=== PATIENT | female | born 1950 | race Caucasian/White ===

== ENCOUNTER 2023-05-16 22:47 | Inpatient (IN) | payer MEDICARE ==
[2023-05-16] MEDS: DILTIAZEM 125 MG in SODIUM CHLORIDE 0.9% 100 ML IV SCH (23:08)
[2023-05-16] MEDS: DILTIAZEM DRIP BOLUS FROM BAG 1 MG SOLN IV ONE (23:10)
--- NOTE | 2023-05-16 23:13 | ED ---
General Adult HPI - General Chief complaint: Shortness of Breath Stated complaint: Tachycardia, Difficulty breathing Time Seen by Provider: 05/16/23 22:50 Source: patient, EMS, RN notes reviewed, old records reviewed Mode of arrival: EMS - History of Present Illness Initial comments: 72-year-old female presents for evaluation of increased dyspnea. Patient states that for the past 1 months she has had progressive lower extremity edema. She was noted by paramedics during transport to be in atrial fibrillation with RVR. She has no prior history of arrhythmia, no history of CAD. She states she does not currently seeing a doctor and is not currently taking any medication. She denies fever. She denies abdominal pain. She denies palpitations or chest pain. - Related Data Home Medications Medication Instructions Recorded Confirmed Aspirin 325 mg PO QID PRN 12/07/22 12/07/22 Allergies Allergy/AdvReac Type Severity Reaction Status Date / Time codeine AdvReac Nausea Verified 12/07/22 07:11 Review of Systems ROS Statement: Those systems with pertinent positive or pertinent negative responses have been documented in the HPI. ROS Other: All systems not noted in ROS Statement are negative. Past Medical History Additional Past Medical History / Comment(s): migraine History of Any Multi-Drug Resistant Organisms: None Reported Past Surgical History: No Surgical Hx Reported Past Psychological History: No Psychological Hx Reported Past Alcohol Use History: None Reported Past Drug Use History: None Reported General Exam General appearance: alert, anxious Head exam: Present: atraumatic, normocephalic Eye exam: Present: normal appearance, PERRL ENT exam: Present: normal exam Neck exam: Present: normal inspection. Absent: tenderness, meningismus Respiratory exam: Present: respiratory distress, rales, decreased breath sounds Cardiovascular Exam: Present: tachycardia, irregular rhythm GI/Abdominal exam: Present: soft. Absent: distended, tenderness Extremities exam: Present: pedal edema Neurological exam: Present: alert, oriented X3 Psychiatric exam: Present: anxious Skin exam: Present: warm, dry, intact Course Vital Signs 05/16/23 05/16/23 05/16/23 22:53 23:12 23:58 Temperature 97.6 F Pulse Rate 72 134 H 117 H Respiratory 18 27 H 23 Rate Blood Pressure 178/159 189/112 150/116 O2 Sat by Pulse 99 100 100 Oximetry 05/17/23 01:00 Temperature Pulse Rate 110 H Respiratory 17 Rate Blood Pressure 159/132 O2 Sat by Pulse 96 Oximetry Medical Decision Making - Medical Decision Making Was pt. sent in by a medical professional or institution ([facility] Looney, [facility] SCRUBBER, urgent care, hospital, or residential...) When possible be specific @ -No Did you speak to anyone other than the patient for history (EMS, parent, family, police, friend...)? What history was obtained from this source @ -No Did you review nursing and triage notes (agree or disagree)? Why? @ -I reviewed and agree with nursing and triage notes Were old charts reviewed (outside hosp., previous admission, EMS record, old EKG, old radiological studies, urgent care reports/EKG's, residential records)? Report findings @ -No old charts were reviewed Differential Diagnosis (chest pain, altered mental status, abdominal pain women, abdominal pain men, vaginal bleeding, weakness, fever, dyspnea, syncope, headache, dizziness, GI bleed, back pain, seizure, CVA, palpatations, mental health, musculoskeletal)? @ -Differential Dyspnea: Coronary syndrome, arrhythmia, tamponade, asthma, COPD, pulmonary embolism, pneumonia, pneumothorax, pulmonary effusion, anaphylaxis, diabetic ketoacidosis, flailed chest, pulmonary contusion, diaphragmatic rupture, anemia, neuromuscular, this is not meant to be an all-inclusive list. EKG interpreted by me (3pts min.). @EKG: Atrial fibrillation with RVR rate of 194, QRS duration 71, QTc [address] segment elevation. X-rays interpreted by me (1pt min.). @ -Chest x-ray shows diffuse pulmonary edema and bilateral effusions. CT interpreted by me (1pt min.). @ -None done U/S interpreted by me (1pt. min.). @ -None done What testing was considered but not performed or refused? (CT, X-rays, U/S, labs)? Why? @ -None What meds were considered but not given or refused? Why? @ -None Did you discuss the management of the patient with other professionals (professionals i.e. SHAWNA Looney, LEATHER SCRUBBER, lab, RT, psych nurse, social work faculty member, client services manager, teacher, landing signal officer, director of casework)? Give summary @Dr. Llamas Was smoking cessation discussed for >3mins.? @ -No Was critical care preformed (if so, how long)? @ -[Yes, 35 minutes Were there social determinants of health that impacted care today? How? (Ho melessness, low income, unemployed, alcoholism, drug addiction, transportation, low edu. Level, literacy, decrease access to med. care, long-term, rehab)? @ -No Was there de-escalation of care discussed even if they declined (Discuss DNR or withdrawal of care, Hospice)? DNR status @ -No What co-morbidities impacted this encounter? (DM, HTN, Smoking, COPD, CAD, Cancer, CVA, ARF, Chemo, Hep., AIDS, mental health diagnosis, sleep apnea, morbid obesity)? @ -None Was patient admitted / discharged? Hospital course, mention meds given and route, prescriptions, significant lab abnormalities, going to OR and other pertinent info. @ -[72-year-old female presenting with chief complaint of dyspnea, bilateral lower extremity edema. Patient found to be in a rapid atrial fibrillation which is new for this patient, rate near 200. She is also in acute CHF which I suspect is from rapid atrial fibrillation with symptoms progressive over the past 1 month. She started on Cardizem, heparin, given Lasix in the emergency department. This is a new diagnosis for this patient. She has a stable hemoglobin, normal white blood cell count, she has an elevated BNP, negative troponin. Normal electrolytes. Patient admitted to internal medicine with cardiology on consult. Echo has been ordered. Undiagnosed new problem with uncertain prognosis? @ -No Drug Therapy requiring intensive monitoring for toxicity (Heparin, Nitro, Insulin, Cardizem)? @ -No Were any procedures done? @ -No Diagnosis/symptom? @ -New onset atrial fibrillation with RVR, new onset heart failure Acute, or Chronic, or Acute on Chronic? @ -[Acute Uncomplicated (without systemic symptoms) or Complicated (systemic symptoms)? @ -Default Side effects of treatment? @ -No Exacerbation, Progression, or Severe Exacerbation? @ -No Poses a threat to life or bodily function? How? (Chest pain, [place], [place], pneumonia, PE, COPD, DKA, ARF, appy, cholecystitis, CVA, Diverticulitis, Homicidal, Suicidal, threat to staff... and all critical care pts) @ -Yes, CHF, arrhythmia - Lab Data Result diagrams: 05/16/23 23:01 05/16/23 23:01 Lab Results 05/16/23 05/16/23 05/16/23 Range/Units 23:01 23:01 23:01 WBC 10.8 H (3.8-10.6) k/uL RBC 4.57 (3.80-5.40) m/uL Hgb 13.0 (11.4-16.0) gm/dL Hct 40.9 (34.0-46.0) % MCV 89.4 (80.0-100.0) fL MCH 28.4 (25.0-35.0) pg MCHC 31.7 (31.0-37.0) g/dL RDW 16.4 H (11.5-15.5) % Plt Count 242 (150-450) k/uL MPV 7.8 Neutrophils % 81 % Lymphocytes % 13 % Monocytes % 4 % Eosinophils % 1 % Basophils % 1 % Neutrophils # 8.7 H (1.3-7.7) k/uL Lymphocytes # 1.4 (1.0-4.8) k/uL Monocytes # 0.5 (0-1.0) k/uL Eosinophils # 0.1 (0-0.7) k/uL Basophils # 0.1 (0-0.2) k/uL Poikilocytosis Slight Anisocytosis Slight PT 11.8 (10.0-12.5) sec INR 1.1 (<1.2) APTT 21.4 L (22.0-30.0) sec Sodium 136 L (137-145) mmol/L Potassium 3.8 (3.5-5.1) mmol/L Chloride 103 (98-107) mmol/L Carbon Dioxide 28 (22-30) mmol/L Anion Gap 5 mmol/L BUN 22 H (7-17) mg/dL Creatinine 0.88 (0.52-1.04) mg/dL Est GFR (CKD-EPI)AfAm 75 (>60 ml/min/1.73 sqM) Est GFR (CKD-EPI)NonAf 65 (>60 ml/min/1.73 sqM) Glucose 131 H (74-99) mg/dL Calcium 9.4 (8.4-10.2) mg/dL Magnesium 1.9 (1.6-2.3) mg/dL Total Bilirubin 2.2 H (0.2-1.3) mg/dL AST 27 (14-36) U/L ALT 22 (4-34) U/L Alkaline Phosphatase 71 (38-126) U/L Troponin I (0.000-0.034) ng/mL NT-Pro-B Natriuret Pep 4070 pg/mL Total Protein 5.7 L (6.3-8.2) g/dL Albumin 3.3 L (3.5-5.0) g/dL TSH 3.610 (0.465-4.680) mIU/L 05/16/23 Range/Units 23:01 WBC (3.8-10.6) k/uL RBC (3.80-5.40) m/uL Hgb (11.4-16.0) gm/dL Hct (34.0-46.0) % MCV (80.0-100.0) fL MCH (25.0-35.0) pg MCHC (31.0-37.0) g/dL RDW (11.5-15.5) % Plt Count (150-450) k/uL MPV Neutrophils % % Lymphocytes % % Monocytes % % Eosinophils % % Basophils % % Neutrophils # (1.3-7.7) k/uL Lymphocytes # (1.0-4.8) k/uL Monocytes # (0-1.0) k/uL Eosinophils # (0-0.7) k/uL Basophils # (0-0.2) k/uL Poikilocytosis Anisocytosis PT (10.0-12.5) sec INR (<1.2) APTT (22.0-30.0) sec Sodium (137-145) mmol/L Potassium (3.5-5.1) mmol/L Chloride (98-107) mmol/L Carbon Dioxide (22-30) mmol/L Anion Gap mmol/L BUN (7-17) mg/dL Creatinine (0.52-1.04) mg/dL Est GFR (CKD-EPI)AfAm (>60 ml/min/1.73 sqM) Est GFR (CKD-EPI)NonAf (>60 ml/min/1.73 sqM) Glucose (74-99) mg/dL Calcium (8.4-10.2) mg/dL Magnesium (1.6-2.3) mg/dL Total Bilirubin (0.2-1.3) mg/dL AST (14-36) U/L ALT (4-34) U/L Alkaline Phosphatase (38-126) U/L Troponin I 0.019 (0.000-0.034) ng/mL NT-Pro-B Natriuret Pep pg/mL Total Protein (6.3-8.2) g/dL Albumin (3.5-5.0) g/dL TSH (0.465-4.680) mIU/L Critical Care Time Critical Care Time: Yes Total Critical Care Time: 35 Disposition Clinical Impression: Congestive heart failure, Atrial fibrillation with RVR Disposition: ADMITTED IP TO THIS HOSP Condition: Stable Is patient prescribed a controlled substance at d/c from ED?: No Time of Disposition: 01:30
[2023-05-16 23:31] LABS: Anisocytosis Slight; Basophils # (A) 0.1 k/uL (0-0.2); Basophils % (A) 1 %; Eosinophils # (A) 0.1 k/uL (0-0.7); Eosinophils % (A) 1 %; HCT 40.9 % (34.0-46.0); Lymphocytes # (A) 1.4 k/uL (1.0-4.8); Lymphocytes % (A) 13 %; MCH 28.4 pg (25.0-35.0); MCHC 31.7 g/dL (31.0-37.0); MCV 89.4 fL (80.0-100.0); Mean Platelet Volume 7.8; Monocytes # (A) 0.5 k/uL (0-1.0); Monocytes % (A) 4 %; Neutrophils # (A) 8.7 k/uL (1.3-7.7); Neutrophils % (A) 81 %; Platelet Count 242 k/uL (150-450); Poikilocytosis Slight; RBC 4.57 m/uL (3.80-5.40); RDW 16.4 % (11.5-15.5); WBC 10.8 k/uL (3.8-10.6)
[2023-05-16 23:51] LABS: INR 1.1 (<1.2); Prothrombin Time 11.8 sec (10.0-12.5)
[2023-05-16 23:54] LABS: ALT 22 U/L (4-34); AST 27 U/L (14-36); African American GFR (CKD) 75 (>60 ml/min/1.73 sqM); Albumin 3.3 g/dL (3.5-5.0); Alkaline Phosphatase 71 U/L (38-126); Anion Gap 5 mmol/L; Blood Urea Nitrogen 22 mg/dL (7-17); Calcium 9.4 mg/dL (8.4-10.2); Carbon Dioxide 28 mmol/L (22-30); Chloride 103 mmol/L (98-107); Glucose 131 mg/dL (74-99); Magnesium 1.9 mg/dL (1.6-2.3); Non-African American GFR(CKD) 65 (>60 ml/min/1.73 sqM); Partial Thromboplastin Time 21.4 sec (22.0-30.0); Potassium 3.8 mmol/L (3.5-5.1); Sodium 136 mmol/L (137-145); Total Bilirubin 2.2 mg/dL (0.2-1.3); Total Protein 5.7 g/dL (6.3-8.2)
[2023-05-16] MEDS: FUROSEMIDE 10 MG/ML 4 ML VIAL IV STA (23:56)
[2023-05-17 00:02] LABS: NT-Pro-B-Type Natriuretic Pept 4070 pg/mL
[2023-05-17] MEDS ORDERED: NALOXONE 0.4 MG/ML 1 ML VIAL IV PRN (00:23)
[2023-05-17] MEDS ORDERED: ACETAMINOPHEN TAB 325 MG TAB PO PRN (00:23)
--- NOTE | 2023-05-17 00:23 | XR ---
EXAM: XR Chest, 1 View CLINICAL HISTORY: ITS.REASON XR Reason: dysrhythmia TECHNIQUE: Frontal view of the chest. COMPARISON: No relevant prior studies available. IMPRESSION: Cardiomegaly. Bilateral pleural effusions and pulmonary edema
[2023-05-17] MEDS: HEPARIN SOD,PORK IN 0.45% NACL 25,000 UNIT in 0.45% NACL 1 250ML.BAG IV SCH (01:09)
[2023-05-17] MEDS: HEPARIN SODIUM 1,000 UN/ML (10ML VL) IV ONE (01:16)
--- NOTE | 2023-05-17 04:15 | P.HPIM ---
History of Present Illness H&P Date: 05/16/23 Patient is a 72-year-old female with no known PMH who presents to the emergency room with complaints of shortness of breath, palpitations, and lower extremity edema. The patient was tearful during the interview and noted that she lost her to Parkinson's 1 month ago and that she has been feeling really down and depressed since then. She denies any suicidal ideation. Does report that over the past few weeks, she has noticed gradually worsening lower extremity edema up into her thighs as well as shortness of breath, orthopnea, and occasional palpitations. Denies experiencing chest discomfort, nausea, vomiting, diaphoresis, or dizziness. Chest x-ray in the emergency room revealed cardiomegaly with bilateral pulmonary effusions and pulmonary edema. EKG revealed A-fib with RVR at 194 bpm as reviewed by me. Laboratory evaluation was remarkable for troponin 0.019, proBNP 4070, and WBC count 10.8. ED documentation reviewed and case discussed with ED provider. Review of systems: Pertinent positives and negatives as discussed in HPI, a complete review of systems was performed and all other systems are negative. Physical examination: Vital signs reviewed General: non toxic, no distress, appears at stated age, normal weight Derm: no unusual rashes/lesions, warm Head: atraumatic, normocephalic, symmetric Eyes: EOMI, no lid lag, anicteric sclera, pupils equal round reactive to light ENT: Nose and ears atraumatic Neck: No cervical lymphadenopathy, trachea midline, supple Mouth: no lip lesion, mucus membranes moist Cardiovascular: Irregularly irregular, no murmur, positive dorsalis pedis pulse bilateral, 2+ bilateral lower extremity pitting edema Lungs: Bilateral rales appreciated, no accessory muscle use Abdominal: soft, nontender to palpation, no guarding Ext: muscle strength 5 out of 5 in all 4 extremities grossly, no gross muscle atrophy, no contractures, Neuro: CN II-XI grossly intact, no gross focal neuro deficits Psych: Alert, oriented, tearful affect Assessment: A-fib with RVR Fluid overload, suspect CHF with newly diagnosed A-fib Leukocytosis, suspect due to acute stressor with no signs of active infection at this time Bereavement of 's recent Imaging: Chest x-ray in the emergency room revealed cardiomegaly with bilateral pulmonary effusions and pulmonary edema. EKG revealed A-fib with RVR at 194 bpm as reviewed by me. Data Review: Laboratory evaluation was remarkable for troponin 0.019, proBNP 4070, and WBC count 10.8. Plan: Continue with Cardizem and heparin infusions Cardiology consulted Cardiac monitoring Obtain echocardiogram Start lasix 40 mg IV every 12 hourly Intake and output Daily weights Monitor electrolytes DVT prophylaxis: Heparin infusion The patient is admitted with an anticipated greater than than 2 midnight stay for evaluation of A-fib with RVR CODE STATUS: Full Code Discussed with: Patient Anticipated discharge place: Home Past Medical History Additional Past Medical History / Comment(s): migraine History of Any Multi-Drug Resistant Organisms: None Reported Past Surgical History: No Surgical Hx Reported Past Psychological History: No Psychological Hx Reported Past Alcohol Use History: None Reported Past Drug Use History: None Reported Medications and Allergies Home Medications Medication Instructions Recorded Confirmed Type Aspirin 325 mg PO QID PRN 12/07/22 12/07/22 History Allergies Allergy/AdvReac Type Severity Reaction Status Date / Time codeine AdvReac Nausea Verified 12/07/22 07:11 Physical Exam Vitals: Vital Signs Temp Pulse Resp BP Pulse Ox 05/17/23 04:00 98 20 174/102 99 05/17/23 03:30 92 18 125/114 99 05/17/23 02:30 101 H 22 187/122 99 05/17/23 01:30 101 H 22 160/112 98 05/17/23 01:00 110 H 17 159/132 96 05/16/23 23:58 117 H 23 150/116 100 05/16/23 23:12 134 H 27 H 189/112 100 05/16/23 22:53 97.6 F 72 18 178/159 99 Intake and Output 05/16/23 05/16/23 05/17/23 14:59 22:59 06:59 Other: Weight 55 kg Results CBC & Chem 7: 05/16/23 23:01 05/16/23 23:01 Labs: Abnormal Lab Results - Last 24 Hours (Table) 05/16/23 05/16/23 05/16/23 Range/Units 23:01 23:01 23:01 WBC 10.8 H (3.8-10.6) k/uL RDW 16.4 H (11.5-15.5) % Neutrophils # 8.7 H (1.3-7.7) k/uL APTT 21.4 L (22.0-30.0) sec Sodium 136 L (137-145) mmol/L BUN 22 H (7-17) mg/dL Glucose 131 H (74-99) mg/dL Total Bilirubin 2.2 H (0.2-1.3) mg/dL Total Protein 5.7 L (6.3-8.2) g/dL Albumin 3.3 L (3.5-5.0) g/dL
[2023-05-17] MEDS: ISOSORBIDE MONONITRATE ER 60 MG TAB.ER.24H PO STA (04:25)
[2023-05-17] MEDS: FUROSEMIDE 10 MG/ML 4 ML VIAL IV SCH (08:40)
[2023-05-17 08:52] LABS: Anisocytosis Slight; HGB 11.5 gm/dL (11.4-16.0); MCH 29.5 pg (25.0-35.0); MCHC 32.8 g/dL (31.0-37.0); MCV 89.8 fL (80.0-100.0); Mean Platelet Volume 7.2; Platelet Count 213 k/uL (150-450); Poikilocytosis Slight; RDW 16.3 % (11.5-15.5); WBC 7.5 k/uL (3.8-10.6)
[2023-05-17 09:05] LABS: ALT 22 U/L (4-34); AST 34 U/L (14-36); African American GFR (CKD) 90 (>60 ml/min/1.73 sqM); Alkaline Phosphatase 48 U/L (38-126); Anion Gap 5 mmol/L; Blood Urea Nitrogen 21 mg/dL (7-17); Calcium 8.6 mg/dL (8.4-10.2); Carbon Dioxide 30 mmol/L (22-30); Chloride 102 mmol/L (98-107); Glucose 92 mg/dL (74-99); Magnesium 1.8 mg/dL (1.6-2.3); Non-African American GFR(CKD) 78 (>60 ml/min/1.73 sqM); Sodium 137 mmol/L (137-145); Total Bilirubin 2.8 mg/dL (0.2-1.3); Total Protein 5.3 g/dL (6.3-8.2)
[2023-05-17] MEDS: METOPROLOL TARTRATE 25 MG TAB PO SCH (09:07)
[2023-05-17] MEDS: lisinopriL 5 MG TAB PO SCH (09:07)
[2023-05-17 09:20] LABS: Potassium 3.5 mmol/L (3.5-5.1)
--- NOTE | 2023-05-17 11:15 | CA ---
Transthoracic Echo Report Name: Sondra Brooke Age: 72 Gender: F : 1950 Exam Date: 05/17/2023 08:09 Exam Location: [facility] Ht (in): 62 Wt (lb): 121 Ordering Physician: Reese Neumann MD Attending/Referring Phys: [id number], Nel Golf Caddy Radha Fong RDCS Procedure CPT: Indications: chf Cardiac Hx: Technical Quality: Good Contrast 1: Total Dose (mL): Contrast 2: Total Dose (mL): MEASUREMENTS (Male / Female) Normal Values 2D ECHO LV Diastolic Diameter PLAX 3.9 cm 4.2 - 5.9 / 3.9 - 5.3 cm LV Systolic Diameter PLAX 3.3 cm IVS Diastolic Thickness 1.3 cm 0.6 - 1.0 / 0.6 - 0.9 cm LVPW Diastolic Thickness 1.3 cm 0.6 - 1.0 / 0.6 - 0.9 cm LV Relative Wall Thickness 0.7 RV Internal Dim ED PLAX 3.5 cm LA Systolic Diameter LX 4.3 cm 3.0 - 4.0 / 2.7 - 3.8 cm LV Diastolic Volume MOD 4C 75.5 cm??? LV Systolic Volume MOD 4C 47.8 cm??? LV Ejection Fraction MOD 4C 36.8 % LV Cardiac Index MOD 4C 1698.3 cm???/min???m??? LV Diastolic Length 4C 8.0 cm LV Systolic Length 4C 7.3 cm LV Diastolic Volume MOD 2C 72.7 cm??? LV Systolic Volume MOD 2C 40.2 cm??? LV Ejection Fraction MOD 2C 44.7 % LV Cardiac Index MOD 2C 1987.5 cm???/min???m??? LV Diastolic Length 2C 7.0 cm LV Systolic Length 2C 6.2 cm LA Volume 61.7 cm??? 18 - 58 / 22 - 52 cm??? LA Volume Index 39.7 cm???/m??? 16 - 28 cm???/m??? M-MODE Aortic Root Diameter MM 2.8 cm AV Cusp Separation MM 2.2 cm DOPPLER AV Peak Velocity 131.0 cm/s AV Peak Gradient 6.9 mmHg MV Area PHT 3.8 cm??? MV Deceleration Time 190.3 ms TR Peak Velocity 322.8 cm/s TR Peak Gradient 41.7 mmHg Right Ventricular Systolic Press 46.7 mmHg FINDINGS Left Ventricle Left ventricular ejection fraction is estimated at 40-45 %. Left ventricular cavity size normal. Moderately increased septal wall thickness. Mildly increased posterior wall thickness. Right Ventricle Mild right ventricular dilatation. Moderate pulmonary hypertension. Right Atrium Normal right atrial size. Left Atrium Mildly increased left atrial diameter. Mildly increased left atrial volume. Mildly increased left atrial area. Mitral Valve Structurally normal mitral valve. Mild to moderate mitral regurgitation. Aortic Valve Trileaflet aortic valve. Thickened aortic valve without stenosis. Tricuspid Valve Structurally normal tricuspid valve. Moderate tricuspid regurgitation. Pulmonic Valve Structurally normal pulmonic valve. Mild pulmonic regurgitation. Pericardium Trace pericardial effusion. Aorta Normal size aortic root and proximal ascending aorta. CONCLUSIONS Mildly impaired LV function with EF between 40-45% [id number] mitral regurgitation with a central jet Aortic sclerosis was no stenosis Mild pulmonary hypertension Trace pericardial effusion Previewed by: Dr. Todd Spencer MD (Electronically Signed) Final Date: 17 May 2023 11:14
--- NOTE | 2023-05-17 12:17 | P.CRDCN ---
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 We have been asked to evaluate the patient for A-fib with RVR. Patient presented to the hospital stating that she could not catch her breath which has been going on for couple weeks. She denies having any cough no wheezing. She does have lower extremity edema. She denies having any chest pain. She does complain of orthopnea and palpitations. No dizziness or syncopal episode. She has a history of tobacco use and quit in March. She drinks tea. No alcohol use. She denies being diagnosed with any lung conditions no history of CVA. Noted the patient's about 1 month ago. EKG atrial fibrillation with RVR, nonspecific ST-T wave changes Chest x-ray: Cardiomegaly. Bilateral pleural effusions and pulmonary edema. Echocardiogram performed 05/17/2023 reveals EF 40 to 45%, mild to moderate mitral regurgitation with central jet, aortic sclerosis without stenosis, mild pulmonary hypertension, trace pericardial effusion. WBC 7.5, hemoglobin 9.5, platelet count 213. INR 1.1. Sodium 137, potassium 3.5, BUN 21 creatinine 0.76. Total bilirubin 2.8 otherwise liver function test are normal. Troponin 0.019. proBNP 4070. Magnesium 1.8. TSH 3.61. Home cardiac medications: None Review Of Systems: At the time of my exam: CONSTITUTIONAL: Denies fever or chills. HEENT: Denies blurred vision, vision changes, or eye pain. Denies hemoptysis CARDIOVASCULAR: Denies chest pain. + orthopnea.+ PND. Denies palpitations. + edema. RESPIRATORY: + shortness of breath. GASTROINTESTINAL: Denies abdominal pain. Denies nausea or vomiting. HEMATOLOGIC: Denies bleeding disorders. GENITOURINARY: Denies any blood in urine. SKIN: Denies pruitis. Denies rash. Physical examination: Gen: This is a frail-appearing 72-year-old female. In no acute respiratory distress. VS: reviewed HEENT: Head is atraumatic, normocephalic. Pupils equal, round. Sclerae is anicteric. NECK: Significant JVD. LUNGS: Decreased breath sounds bilateral bases. No intercostal retractions. HEART: Depressed heart sounds, irregular rate and rhythm. ABDOMEN: Soft No tenderness. EXTREMITIES: 2+ bilateral pedal edema. No calf tenderness. NEUROLOGICAL: Patient is awake, alert and oriented x3. Assessment: New onset paroxysmal atrial fibrillation with RVR, of unknown duration Acute heart failure, systolic Cardiomyopathy possibly stress-induced Uncontrolled hypertension Moderate mitral regurgitation Tobacco use and dependence, quit in March Plan: Resume patient's home cardiac medications Start patient on metoprolol 25 mg 3 times daily Start patient on lisinopril 5 mg twice daily Continue IV Lasix 40 mg every 12 hours Monitor ANN MARIE, daily weights, electrolytes and renal function Continue patient on IV heparin Further recommendations to follow based upon clinical course Thank you kindly for this consultation. Nurse practitioner note has been reviewed, I agree with documented findings and plan of care. Patient was seen and examined. Past Medical History Additional Past Medical History / Comment(s): migraine History of Any Multi-Drug Resistant Organisms: None Reported Past Surgical History: No Surgical Hx Reported Past Psychological History: No Psychological Hx Reported Past Alcohol Use History: None Reported Past Drug Use History: None Reported Medications and Allergies Home Medications Medication Instructions Recorded Confirmed Type Aspirin 325 mg PO QID PRN 12/07/22 05/17/23 History Allergies Allergy/AdvReac Type Severity Reaction Status Date / Time codeine AdvReac Nausea Verified 05/17/23 07:28 Physical Exam Vitals: Vital Signs Temp Pulse Pulse Resp BP BP Pulse Ox 05/17/23 08:24 97.5 F L 100 17 149/102 98 05/17/23 06:20 90 20 151/99 97 05/17/23 05:48 97.6 F 85 16 156/112 99 05/17/23 05:40 90 14 145/99 97 05/17/23 04:38 88 17 171/119 100 05/17/23 04:00 98 20 174/102 99 05/17/23 03:30 92 18 125/114 99 05/17/23 02:30 101 H 22 187/122 99 05/17/23 01:30 101 H 22 160/112 98 05/17/23 01:00 110 H 17 159/132 96 05/16/23 23:58 117 H 23 150/116 100 05/16/23 23:12 134 H 27 H 189/112 100 05/16/23 22:53 97.6 F 72 18 178/159 99 Intake and Output 05/16/23 05/17/23 05/17/23 22:59 06:59 14:59 Output Total 1100 Balance -1100 Output: Urine 1100 Other: Weight 55 kg Results 05/17/23 08:28 05/17/23 08:28 Cardiac Enzymes 05/16/23 05/16/23 Range/Units 23:01 23:01 AST 27 (14-36) U/L Troponin I 0.019 (0.000-0.034) ng/mL Coagulation 05/16/23 Range/Units 23:01 PT 11.8 (10.0-12.5) sec APTT 21.4 L (22.0-30.0) sec CBC 05/16/23 Range/Units 23:01 WBC 10.8 H (3.8-10.6) k/uL RBC 4.57 (3.80-5.40) m/uL Hgb 13.0 (11.4-16.0) gm/dL Hct 40.9 (34.0-46.0) % Plt Count 242 (150-450) k/uL Comprehensive Metabolic Panel 05/16/23 Range/Units 23:01 Sodium 136 L (137-145) mmol/L Potassium 3.8 (3.5-5.1) mmol/L Chloride 103 (98-107) mmol/L Carbon Dioxide 28 (22-30) mmol/L BUN 22 H (7-17) mg/dL Creatinine 0.88 (0.52-1.04) mg/dL Glucose 131 H (74-99) mg/dL Calcium 9.4 (8.4-10.2) mg/dL AST 27 (14-36) U/L ALT 22 (4-34) U/L Alkaline Phosphatase 71 (38-126) U/L Total Protein 5.7 L (6.3-8.2) g/dL Albumin 3.3 L (3.5-5.0) g/dL Current Medications Generic Name Dose Route Start Last Admin Trade Name Freq PRN Reason Stop Dose Admin Acetaminophen 650 mg 05/17/23 00:23 Acetaminophen Tab 325 Mg Tab PO Q6HR PRN Mild Pain or Fever > 100.5 Furosemide 40 mg 05/17/23 09:00 Furosemide 10 Mg/Ml 4 Ml Vial IV Q12HR RADHA Heparin Sodium (Porcine) 0 unit 05/17/23 00:22 Heparin Sodium 1,000 Un/Ml (10ml Vl) IV PER PROTOCOL PRN Low PTT Protocol Diltiazem HCl 125 mg/ Sodium 125 mls @ 5 mls/hr 05/16/23 23:00 05/16/23 23:08 Chloride IV 5 mg/hr .Q24H RADHA 5 mls/hr Administration 5 MG/HR Heparin Sodium/Sodium Chloride 250 mls @ 6.6 mls/hr 05/17/23 00:30 05/17/23 01:09 25,000 unit/ Sodium Chloride IV 12 units/kg/hr .Q24H RADHA 6.6 mls/hr Administration Protocol 12 UNITS/KG/HR Naloxone HCl 0.2 mg 05/17/23 00:23 Naloxone 0.4 Mg/Ml 1 Ml Vial IV Q2M PRN Opioid Reversal Intake and Output 05/16/23 05/17/23 05/17/23 22:59 06:59 14:59 Output Total 1100 Balance -1100 Output: Urine 1100 Other: Weight 55 kg 05/16/23 23:01 05/16/23 23:01
[2023-05-17] MEDS: HEPARIN SODIUM 1,000 UN/ML (10ML VL) IV PRN (13:27)
--- NOTE | 2023-05-17 13:38 | P.PN ---
Subjective Progress Note Date: 05/17/23 Hospital Course: 72-year-old female with no significant past medical history presenting with 6 weeks of shortness of breath, palpitation, and lower extremity edema. She claims that her symptoms have been worsening over the last few days. Chest x-ray in the emergency room revealed cardiomegaly with bilateral pulmonary effusions and pulmonary edema. EKG revealed A-fib with RVR at 194 bpm. Laboratory e valuation was remarkable for troponin 0.019, proBNP 4070, and WBC count 10.8. Patient started on IV Cardizem and heparin drip, as well as IV Lasix. Cardiology consulted. Subjective: Patient seen and examined at bedside. No acute events overnight. Pertinent positives and negatives as discussed above, a complete review of systems was performed and all other systems are negative. Vitals Signs Reviewed. General: Nontoxic, no distress, appears at stated age Derm: Warm, dry Head: Atraumatic, normocephalic, symmetric Eyes: EOMI, no lid lag, anicteric sclera Mouth: No lip lesion, mucus membranes moist Cardiovascular: S1S2 irregular, tachycardic, no murmur Lungs: CTA bilateral, no rhonchi, no rales, no accessory muscle use Abdominal: Soft, nontender to palpation, no guarding, no appreciable organomegaly Ext: No gross muscle atrophy, 2+ edema, no contractures Neuro: CN II-XI grossly intact, no focal neuro deficits Psych: Alert, oriented, appropriate affect Data Reviewed Today: Pertinent Labs: WBC 7.5, hemoglobin 11.5, sodium 137, potassium 3.5, creatinine 0.76, magnesium 1.8, total bili 2.8 Imaging: Echocardiogram shows LVEF 40 to 45%, mild to moderate mitral regurgitation with a central jet Assessment and Plan: Active: New onset atrial fibrillation with RVR Acute systolic heart failure Systolic cardiomyopathy, unclear if ischemic or nonischemic Hypertension Cardiology note reviewed, continue IV Lasix 40 twice daily, monitor electrolytes and renal function, started on metoprolol 25 3 times daily, lisinopril 5 twice daily Continue IV heparin, monitor APTT Cardizem has been discontinued Continue telemetry Daily weight, and intake and output DVT ppx: heparin Code status: Anticipated discharge place: Home Anticipated discharge time: Pending clinical course Objective - Vital Signs Vital signs: Vital Signs Temp 97.5 F L 05/17/23 08:24 Pulse 100 05/17/23 08:24 Resp 17 05/17/23 08:24 BP 149/102 05/17/23 08:24 Pulse Ox 98 05/17/23 08:24 FiO2 Intake & Output 05/16/23 05/17/23 05/17/23 18:59 06:59 18:59 Intake Total 80.63 Output Total 1100 Balance -1100 80.63 Weight 55 kg 55 kg Intake: Intake, IV Titration 80.63 Amount Heparin Sod,Pork in 0.45% 80.63 NaCl 25,000 unit In 0.45 % NaCl 1 250ml.bag @ 12 UNITS/KG/HR 6.6 mls/hr IV .Q24H [facility] Rx#:[id number] Output: Urine 1100 - Labs CBC & Chem 7: 05/17/23 08:28 05/17/23 08:28 Labs: Abnormal Lab Results - Last 24 Hours (Table) 05/16/23 05/16/23 05/16/23 Range/Units 23:01 23:01 23:01 WBC 10.8 H (3.8-10.6) k/uL RDW 16.4 H (11.5-15.5) % Neutrophils # 8.7 H (1.3-7.7) k/uL APTT 21.4 L (22.0-30.0) sec Sodium 136 L (137-145) mmol/L BUN 22 H (7-17) mg/dL Glucose 131 H (74-99) mg/dL Total Bilirubin 2.2 H (0.2-1.3) mg/dL Total Protein 5.7 L (6.3-8.2) g/dL Albumin 3.3 L (3.5-5.0) g/dL 05/17/23 05/17/23 05/17/23 Range/Units 08:28 08:28 08:28 WBC (3.8-10.6) k/uL RDW 16.3 H (11.5-15.5) % Neutrophils # (1.3-7.7) k/uL APTT 36.3 H (22.0-30.0) sec Sodium (137-145) mmol/L BUN 21 H (7-17) mg/dL Glucose (74-99) mg/dL Total Bilirubin 2.8 H (0.2-1.3) mg/dL Total Protein 5.3 L (6.3-8.2) g/dL Albumin 3.0 L (3.5-5.0) g/dL
[2023-05-18 04:02] LABS: Anisocytosis Slight; Basophils % (A) 1 %; Eosinophils # (A) 0.1 k/uL (0-0.7); Eosinophils % (A) 1 %; HCT 32.7 % (34.0-46.0); HGB 10.8 gm/dL (11.4-16.0); Lymphocytes # (A) 1.2 k/uL (1.0-4.8); Lymphocytes % (A) 15 %; MCH 29.5 pg (25.0-35.0); MCHC 33.1 g/dL (31.0-37.0); MCV 89.2 fL (80.0-100.0); Monocytes # (A) 0.4 k/uL (0-1.0); Monocytes % (A) 5 %; Neutrophils % (A) 77 %; Platelet Count 200 k/uL (150-450); Poikilocytosis Slight; RBC 3.67 m/uL (3.80-5.40); RDW 16.3 % (11.5-15.5); WBC 7.8 k/uL (3.8-10.6)
[2023-05-18 04:28] LABS: INR 1.1 (<1.2); Prothrombin Time 11.7 sec (10.0-12.5)
--- NOTE | 2023-05-18 12:01 | P.PN ---
Subjective Progress Note Date: 05/18/23 Hospital Course: 72-year-old female with no significant past medical history presenting with 6 weeks of shortness of breath, palpitation, and lower extremity edema. She claims that her symptoms have been worsening over the last few days. Chest x-ray in the emergency room revealed cardiomegaly with bilateral pulmonary effusions and pulmonary edema. EKG revealed A-fib with RVR at 194 bpm. Laboratory e valuation was remarkable for troponin 0.019, proBNP 4070, and WBC count 10.8. Patient started on IV Cardizem and heparin drip, as well as IV Lasix. Cardiology consulted. Echocardiogram shows LVEF 40 to 45%, mild t magnesium pending, will be reviewed when available Subjective: Patient seen and examined at bedside. No acute events overnight. Claims that she is feeling a little bit better today. Feels a little weak. Has not gotten out of the bed. Pertinent positives and negatives as discussed above, a complete review of systems was performed and all other systems are negative. Vitals Signs Reviewed. General: Nontoxic, no distress, appears at stated age Derm: Warm, dry Head: Atraumatic, normocephalic, symmetric Eyes: EOMI, no lid lag, anicteric sclera Mouth: No lip lesion, mucus membranes moist Cardiovascular: S1S2 irregular, no murmur Lungs: CTA bilateral, no rhonchi, no rales, no accessory muscle use Abdominal: Soft, nontender to palpation, no guarding, no appreciable organo megaly Ext: No gross muscle atrophy, no edema, no contractures Neuro: CN II-XI grossly intact, no focal neuro deficits Psych: Alert, oriented, appropriate affect Data Reviewed Today: Pertinent Labs: WBC 7.8, hemoglobin 10.8, BMP and magnesium pending Imaging: No new imaging Assessment and Plan: Active: New onset atrial fibrillation with RVR Acute systolic heart failure Acute hypoxic respiratory failure Systolic cardiomyopathy, unclear if ischemic or nonischemic Hypertension Cardiology following, continue IV Lasix 40 twice daily, monitor electrolytes and renal function, metoprolol increased to 50 twice daily, lisinopril 5 twice daily IV heparin discontinued by cardiology, consider oral anticoagulation Wean oxygen Continue telemetry Daily weight, and intake and output PT ordered DVT ppx: heparin Code status: Anticipated discharge place: Pending clinical course Anticipated discharge time: Pending clinical course Objective - Vital Signs Vital signs: Vital Signs Temp 97.7 F 05/18/23 08:51 Pulse 110 H 05/18/23 08:51 Resp 18 05/18/23 08:51 BP 134/74 05/18/23 08:51 Pulse Ox 95 05/18/23 08:51 FiO2 Intake & Output 05/17/23 05/18/23 05/18/23 18:59 06:59 18:59 Intake Total 129.963 99.595 118 Output Total 5630 021 7423 Balance -1070.037 -600.405 -982 Weight 55 kg 61.7 kg Intake: Intake, IV Titration 129.963 99.595 Amount Diltiazem 125 mg In 49.333 Sodium Chloride 0.9% 100 ml @ 5 MG/HR 5 mls/hr IV .Q24H [facility] Rx#:[id number] Heparin Sod,Pork in 0.45% 80.63 99.595 NaCl 25,000 unit In 0.45 % NaCl 1 250ml.bag @ 12 UNITS/KG/HR 6.6 mls/hr IV .Q24H [facility] Rx#:[id number] Oral 118 Output: Urine 9128 930 9543 Other: Voiding Method External Catheter External Catheter External Catheter - Labs CBC & Chem 7: 05/18/23 03:43 05/17/23 08:28 Labs: Abnormal Lab Results - Last 24 Hours (Table) 05/17/23 05/18/23 05/18/23 Range/Units 20:15 03:43 03:43 RBC 3.67 L (3.80-5.40) m/uL Hgb 10.8 L (11.4-16.0) gm/dL Hct 32.7 L (34.0-46.0) % RDW 16.3 H (11.5-15.5) % APTT 102.4 H* 31.6 H (22.0-30.0) sec
--- NOTE | 2023-05-18 12:19 | P.PN ---
Subjective Progress Note Date: 05/18/23 Consult reason: atrial fibrillation (New onset) History of present illness: History of present illness: This is a 72-year-old frail-appearing female with no previous cardiac history, does not follow with a pathologist and has not followed with a primary care practitioner in a long period of time. We have been asked to evaluate the patient for A-fib with RVR. Patient presented to the hospital stating that she could not catch her breath which has been going on for couple weeks. She denies having any cough no wheezing. She does have lower extremity edema. She denies having any chest pain. She does complain of orthopnea and palpitations. No d izziness or syncopal episode. She has a history of tobacco use and quit in March. She drinks tea. No alcohol use. She denies being diagnosed with any lung conditions no history of CVA. Noted the patient's about 1 month ago. EKG atrial fibrillation with RVR, nonspecific ST-T wave changes Chest x-ray: Cardiomegaly. Bilateral pleural effusions and pulmonary edema. Echocardiogram performed 05/17/2023 reveals EF 40 to 45%, mild to moderate mitral regurgitation with central jet, aortic sclerosis without stenosis, mild pulmonary hypertension, trace pericardial effusion. WBC 7.5, hemoglobin 9.5, platelet count 213. INR 1.1. Sodium 137, potassium 3.5, BUN 21 creatinine 0.76. Total bilirubin 2.8 otherwise liver function test are normal. Troponin 0.019. proBNP 4070. Magnesium 1.8. TSH 3.61. Home cardiac medications: None 05/17 Patient is seen today on the cardiac stepdown unit. She has been continued on IV heparin and IV Lasix. She states her breathing is better and she has less lower extremity edema. She remains in atrial fibrillation running between 90 in the low 100s. Blood pressure 134/74. Repeat blood work reveals hemoglobin 10.8. Physical examination: Gen: This is a frail-appearing 72-year-old female. In no acute respiratory distress. VS: reviewed HEENT: Head is atraumatic, normocephalic. Pupils equal, round. Sclerae is anicteric. NECK: Significant JVD. LUNGS: Decreased breath sounds bilateral bases. No intercostal retractions. HEART: Depressed heart sounds, irregular rate and rhythm. ABDOMEN: Soft No tenderness. EXTREMITIES: Minimal bilateral pedal edema. No calf tenderness. NEUROLOGICAL: Patient is awake, alert and oriented x3. Assessment: New onset paroxysmal atrial fibrillation with RVR, of unknown duration Acute heart failure, systolic Cardiomyopathy possibly stress-induced Uncontrolled hypertension Moderate mitral regurgitation Tobacco use and dependence, quit in March Plan: Continue patient's home cardiac medications Increase metoprolol to 50 mg twice daily Continue patient on lisinopril 5 mg twice daily Transition IV Lasix to oral 40 mg twice daily Monitor ANN MARIE, daily weights, electrolytes and renal function Discontinue heparin drip and start patient on Eliquis 2.5 mg twice daily Add Farxiga 10 mg daily and Aldactone 25 mg daily Further recommendations to follow based upon clinical course Nurse practitioner note has been reviewed, I agree with documented findings and plan of care. Patient was seen and examined. Objective - Vital Signs Vital signs: Vital Signs Temp 97.7 F 05/18/23 08:51 Pulse 110 H 05/18/23 08:51 Resp 18 05/18/23 08:51 BP 134/74 05/18/23 08:51 Pulse Ox 95 05/18/23 08:51 FiO2 Intake & Output 05/17/23 05/18/23 05/18/23 18:59 06:59 18:59 Intake Total 129.963 99.595 118 Output Total 2158 234 0540 Balance -1070.037 -600.405 -982 Weight 55 kg 61.7 kg Intake: Intake, IV Titration 129.963 99.595 Amount Diltiazem 125 mg In 49.333 Sodium Chloride 0.9% 100 ml @ 5 MG/HR 5 mls/hr IV .Q24H [facility] Rx#:[id number] Heparin Sod,Pork in 0.45% 80.63 99.595 NaCl 25,000 unit In 0.45 % NaCl 1 250ml.bag @ 12 UNITS/KG/HR 6.6 mls/hr IV .Q24H [facility] Rx#:[id number] Oral 118 Output: Urine 1703 926 0843 Other: Voiding Method External Catheter External Catheter External Catheter - Labs CBC & Chem 7: 05/18/23 03:43 05/17/23 08:28 Labs: Abnormal Lab Results - Last 24 Hours (Table) 05/17/23 05/18/23 05/18/23 Range/Units 20:15 03:43 03:43 RBC 3.67 L (3.80-5.40) m/uL Hgb 10.8 L (11.4-16.0) gm/dL Hct 32.7 L (34.0-46.0) % RDW 16.3 H (11.5-15.5) % APTT 102.4 H* 31.6 H (22.0-30.0) sec
[2023-05-18] MEDS: APIXABAN 2.5 MG TABLET PO SCH (12:39)
[2023-05-18] MEDS: SPIRONOLACTONE 25 MG TAB PO SCH (12:40)
[2023-05-18] MEDS: DAPAGLIFLOZIN PROPANEDIOL 10 MG TABLET PO SCH (12:40)
[2023-05-18 12:54] LABS: African American GFR (CKD) 75 (>60 ml/min/1.73 sqM); Anion Gap 5 mmol/L; Blood Urea Nitrogen 19 mg/dL (7-17); Calcium 8.4 mg/dL (8.4-10.2); Carbon Dioxide 34 mmol/L (22-30); Chloride 97 mmol/L (98-107); Glucose 102 mg/dL (74-99); Magnesium 1.8 mg/dL (1.6-2.3); Non-African American GFR(CKD) 65 (>60 ml/min/1.73 sqM); Sodium 136 mmol/L (137-145)
[2023-05-18] MEDS: POTASSIUM CHLORIDE ER 20 MEQ TAB.ER PO SCH ×2 (14:22→14:29)
[2023-05-18] MEDS: FUROSEMIDE 40 MG TAB PO SCH (15:09)
[2023-05-18] MEDS: METOPROLOL TARTRATE 50 MG TAB PO SCH (19:50)
[2023-05-18] MEDS: METOPROLOL TARTRATE 25 MG TAB PO STA (20:37)
[2023-05-18] MEDS: LORazepam 2 MG/ML INJ IV STA (21:15)
[2023-05-19 09:08] LABS: Anisocytosis Slight; Basophils % (A) 1 %; Eosinophils # (A) 0.1 k/uL (0-0.7); Eosinophils % (A) 1 %; HCT 33.5 % (34.0-46.0); HGB 11.1 gm/dL (11.4-16.0); Lymphocytes # (A) 1.2 k/uL (1.0-4.8); Lymphocytes % (A) 14 %; MCH 29.9 pg (25.0-35.0); MCHC 33.2 g/dL (31.0-37.0); Mean Platelet Volume 7.2; Monocytes # (A) 0.4 k/uL (0-1.0); Monocytes % (A) 5 %; Neutrophils % (A) 79 %; Platelet Count 227 k/uL (150-450); Poikilocytosis Slight; RBC 3.73 m/uL (3.80-5.40); RDW 16.5 % (11.5-15.5); WBC 8.8 k/uL (3.8-10.6)
[2023-05-19 09:18] LABS: African American GFR (CKD) 76 (>60 ml/min/1.73 sqM); Anion Gap 2 mmol/L; Blood Urea Nitrogen 19 mg/dL (7-17); Calcium 8.4 mg/dL (8.4-10.2); Carbon Dioxide 34 mmol/L (22-30); Chloride 100 mmol/L (98-107); Glucose 84 mg/dL (74-99); Magnesium 1.9 mg/dL (1.6-2.3); Non-African American GFR(CKD) 66 (>60 ml/min/1.73 sqM); Potassium 3.9 mmol/L (3.5-5.1); Sodium 136 mmol/L (137-145)
[2023-05-19] MEDS: METOPROLOL TARTRATE 25 MG TAB PO SCH (09:22)
[2023-05-19] MEDS: DILTIAZEM 125 MG in SODIUM CHLORIDE 0.9% 100 ML IV SCH (10:12)
[2023-05-19] MEDS: DILTIAZEM DRIP BOLUS FROM BAG 1 MG SOLN IV STA (10:14)
--- NOTE | 2023-05-19 11:21 | P.PN ---
Subjective Progress Note Date: 05/19/23 Hospital Course: 72-year-old female with no significant past medical history presenting with 6 weeks of shortness of breath, palpitation, and lower extremity edema. She claims that her symptoms have been worsening over the last few days. Chest x-ray in the emergency room revealed cardiomegaly with bilateral pulmonary effusions and pulmonary edema. EKG revealed A-fib with RVR at 194 bpm. Laboratory e valuation was remarkable for troponin 0.019, proBNP 4070, and WBC count 10.8. Patient started on IV Cardizem and heparin drip, as well as IV Lasix. Cardiology consulted. Echocardiogram shows LVEF 40 to 45%. Still having episodes of RVR. Back in on Cardizem drip. On Eliquis. Subjective: Patient seen and examined at bedside. Had episode of tachycardia this morning. Otherwise no other acute events Pertinent positives and negatives as discussed above, a complete review of systems was performed and all other systems are negative. Vitals Signs Reviewed. General: Nontoxic, no distress, appears at stated age Derm: Warm, dry Head: Atraumatic, normocephalic, symmetric Eyes: EOMI, no lid lag, anicteric sclera Mouth: No lip lesion, mucus membranes moist Cardiovascular: S1S2 irregular, tachycardic, no murmur Lungs: CTA bilateral, no rhonchi, no rales, no accessory muscle use Abdominal: Soft, nontender to palpation, no guarding, no appreciable organomegaly Ext: No gross muscle atrophy, no edema, no contractures Neuro: CN II-XI grossly intact, no focal neuro deficits Psych: Alert, oriented, appropriate affect Data Reviewed Today: Pertinent Labs: Hemoglobin 11.1, sodium 136, potassium 3.9, magnesium 1.9 Imaging: No new imaging Assessment and Plan: Active: New onset atrial fibrillation with RVR Acute systolic heart failure Acute hypoxic respiratory failure Systolic cardiomyopathy, likely nonischemic in the setting of A-fib Hypertension Cardiology following, patient is back on Cardizem drip, monitor heart rate closely Also on Eliquis 2.5 twice daily Oral Lasix 40 twice daily, Farxiga 10 daily, metoprolol 75 twice daily, Aldactone 25 daily Wean oxygen Continue telemetry Daily weight, and intake and output Hypokalemia, resolved DVT ppx: Eliquis Code status: FC Anticipated discharge place: Home Anticipated discharge time: Pending clinical course Objective - Vital Signs Vital signs: Vital Signs Temp 98 F 05/19/23 09:15 Pulse 168 H 05/19/23 09:15 Resp 16 05/19/23 09:15 BP 134/81 05/19/23 09:15 Pulse Ox 93 L 05/19/23 09:15 FiO2 Intake & Output 05/18/23 05/19/23 05/19/23 18:59 06:59 18:59 Intake Total 354 0 118 Output Total 2100 1050 300 Balance -6326 -7440 -182 Intake: Oral 354 0 118 Output: Urine 2100 700 Urine/Stool Mix 350 300 Other: Voiding Method External Catheter Bedside Commode Diaper # Voids 1 # Bowel Movements 1 - Labs CBC & Chem 7: 05/19/23 08:43 05/19/23 08:43 Labs: Abnormal Lab Results - Last 24 Hours (Table) 05/18/23 05/18/23 05/19/23 Range/Units 10:56 10:56 08:43 RBC 3.73 L (3.80-5.40) m/uL Hgb 11.1 L (11.4-16.0) gm/dL Hct 33.5 L (34.0-46.0) % RDW 16.5 H (11.5-15.5) % APTT 52.7 H (22.0-30.0) sec Sodium 136 L (137-145) mmol/L Potassium 3.0 L (3.5-5.1) mmol/L Chloride 97 L (98-107) mmol/L Carbon Dioxide 34 H (22-30) mmol/L BUN 19 H (7-17) mg/dL Glucose 102 H (74-99) mg/dL 05/19/23 Range/Units 08:43 RBC (3.80-5.40) m/uL Hgb (11.4-16.0) gm/dL Hct (34.0-46.0) % RDW (11.5-15.5) % APTT (22.0-30.0) sec Sodium 136 L (137-145) mmol/L Potassium (3.5-5.1) mmol/L Chloride (98-107) mmol/L Carbon Dioxide 34 H (22-30) mmol/L BUN 19 H (7-17) mg/dL Glucose (74-99) mg/dL
[2023-05-19] MEDS: METOPROLOL TARTRATE 25 MG TAB PO STA (12:55)
--- NOTE | 2023-05-19 15:15 | P.PN ---
Subjective Progress Note Date: 05/19/23 Consult reason: atrial fibrillation (New onset) History of present illness: History of present illness: This is a 72-year-old frail-appearing female with no previous cardiac history, does not follow with a mobile security architect and has not followed with a primary care practitioner in a long period of time. We have been asked to evaluate the patient for A-fib with RVR. Patient presented to the hospital stating that she could not catch her breath which has been going on for couple weeks. She denies having any cough no wheezing. She does have lower extremity edema. She denies having any chest pain. She does complain of orthopnea and palpitations. No d izziness or syncopal episode. She has a history of tobacco use and quit in March. She drinks tea. No alcohol use. She denies being diagnosed with any lung conditions no history of CVA. Noted the patient's about 1 month ago. EKG atrial fibrillation with RVR, nonspecific ST-T wave changes Chest x-ray: Cardiomegaly. Bilateral pleural effusions and pulmonary edema. Echocardiogram performed 05/17/2023 reveals EF 40 to 45%, mild to moderate mitral regurgitation with central jet, aortic sclerosis without stenosis, mild pulmonary hypertension, trace pericardial effusion. WBC 7.5, hemoglobin 9.5, platelet count 213. INR 1.1. Sodium 137, potassium 3.5, BUN 21 creatinine 0.76. Total bilirubin 2.8 otherwise liver function test are normal. Troponin 0.019. proBNP 4070. Magnesium 1.8. TSH 3.61. Home cardiac medications: None 05/17 Patient is seen today on the cardiac stepdown unit. She has been continued on IV heparin and IV Lasix. She states her breathing is better and she has less lower extremity edema. She remains in atrial fibrillation running between 90 in the low 100s. Blood pressure 134/74. Repeat blood work reveals hemoglobin 10.8. 05/18 Patient is in atrial fibrillation heart rate was up in the 130s+. During the night, metoprolol was increased to 75 mg twice daily by on-call mobile security architect. Patient has been asymptomatic. She is transition to Eliquis, Farxiga and Aldactone were added yesterday. Also IV Lasix was transitioned to oral Lasix as of yesterday. Blood pressure 134/81, heart rate 93 on 2 L nasal cannula. Repeat blood work reveals hemoglobin 9.1. Sodium 136, potassium 3.9, BUN 19 creatinine 0.87.. Physical examination: Gen: This is a frail-appearing 72-year-old female. In no acute respiratory distress. VS: reviewed HEENT: Head is atraumatic, normocephalic. Pupils equal, round. Sclerae is anicteric. NECK: Significant JVD. LUNGS: Decreased breath sounds bilateral bases. No intercostal retractions. HEART: Depressed heart sounds, irregular rate and rhythm. ABDOMEN: Soft No tenderness. EXTREMITIES: Minimal bilateral pedal edema. No calf tenderness. NEUROLOGICAL: Patient is awake, alert and oriented x3. Assessment: New onset paroxysmal atrial fibrillation with RVR, of unknown duration Acute heart failure, systolic Cardiomyopathy possibly stress-induced Uncontrolled hypertension Moderate mitral regurgitation Tobacco use and dependence, quit in March Plan: Continue patient on metoprolol increased to 100 mg twice daily Continue patient on lisinopril 5 mg twice daily, oral Lasix 40 mg twice daily, Aldactone 25 mg daily Continue patient on Eliquis 2.5 mg twice daily Monitor heart rate and if controlled tomorrow, plan for discharge home Repeat blood work in the morning Further recommendations to follow based upon clinical course Nurse practitioner note has been reviewed, I agree with documented findings and plan of care. Patient was seen and examined. Objective - Vital Signs Vital signs: Vital Signs Temp 98 F 05/19/23 09:15 Pulse 168 H 05/19/23 09:15 Resp 16 05/19/23 09:15 BP 134/81 05/19/23 09:15 Pulse Ox 93 L 05/19/23 09:15 FiO2 Intake & Output 05/18/23 05/19/23 05/19/23 18:59 06:59 18:59 Intake Total 354 0 118 Output Total 2100 1050 300 Balance -1746 -1050 -182 Intake: Oral 354 0 118 Output: Urine 2100 700 Urine/Stool Mix 350 300 Other: Voiding Method External Catheter Bedside Commode Diaper # Voids 1 # Bowel Movements 1 - Labs CBC & Chem 7: 05/19/23 08:43 05/19/23 08:43 Labs: Abnormal Lab Results - Last 24 Hours (Table) 05/18/23 05/18/23 05/19/23 Range/Units 10:56 10:56 08:43 RBC 3.73 L (3.80-5.40) m/uL Hgb 11.1 L (11.4-16.0) gm/dL Hct 33.5 L (34.0-46.0) % RDW 16.5 H (11.5-15.5) % APTT 52.7 H (22.0-30.0) sec Sodium 136 L (137-145) mmol/L Potassium 3.0 L (3.5-5.1) mmol/L Chloride 97 L (98-107) mmol/L Carbon Dioxide 34 H (22-30) mmol/L BUN 19 H (7-17) mg/dL Glucose 102 H (74-99) mg/dL 05/19/23 Range/Units 08:43 RBC (3.80-5.40) m/uL Hgb (11.4-16.0) gm/dL Hct (34.0-46.0) % RDW (11.5-15.5) % APTT (22.0-30.0) sec Sodium 136 L (137-145) mmol/L Potassium (3.5-5.1) mmol/L Chloride (98-107) mmol/L Carbon Dioxide 34 H (22-30) mmol/L BUN 19 H (7-17) mg/dL Glucose (74-99) mg/dL
[2023-05-19] MEDS: AMIODARONE 360 MG in DEXTROSE 5% IN WATER 200 ML IV ONE (20:20)
[2023-05-19] MEDS: APIXABAN 5 MG TAB PO SCH (21:59)
[2023-05-19] MEDS: METOPROLOL TARTRATE 50 MG TAB PO SCH (22:00)
[2023-05-20] MEDS: AMIODARONE 450 MG in DEXTROSE 5% IN WATER 250 ML IV SCH (01:51)
[2023-05-20] MEDS: ONDANSETRON 4 MG/2 ML VIAL IVP PRN (03:00)
[2023-05-20] MEDS: AMIODARONE 200 MG TAB PO SCH (11:00)
--- NOTE | 2023-05-20 12:07 | P.PN ---
Subjective Progress Note Date: 05/20/23 Consult reason: atrial fibrillation (New onset) History of present illness: History of present illness: This is a 72-year-old frail-appearing female with no previous cardiac history, does not follow with a group managing director and has not followed with a primary care practitioner in a long period of time. We have been asked to evaluate the patient for A-fib with RVR. Patient presented to the hospital stating that she could not catch her breath which has been going on for couple weeks. She denies having any cough no wheezing. She does have lower extremity edema. She denies having any chest pain. She does complain of orthopnea and palpitations. No d izziness or syncopal episode. She has a history of tobacco use and quit in March. She drinks tea. No alcohol use. She denies being diagnosed with any lung conditions no history of CVA. Noted the patient's about 1 month ago. EKG atrial fibrillation with RVR, nonspecific ST-T wave changes Chest x-ray: Cardiomegaly. Bilateral pleural effusions and pulmonary edema. Echocardiogram performed 05/17/2023 reveals EF 40 to 45%, mild to moderate mitral regurgitation with central jet, aortic sclerosis without stenosis, mild pulmonary hypertension, trace pericardial effusion. WBC 7.5, hemoglobin 9.5, platelet count 213. INR 1.1. Sodium 137, potassium 3.5, BUN 21 creatinine 0.76. Total bilirubin 2.8 otherwise liver function test are normal. Troponin 0.019. proBNP 4070. Magnesium 1.8. TSH 3.61. Home cardiac medications: None 05/17 Patient is seen today on the cardiac stepdown unit. She has been continued on IV heparin and IV Lasix. She states her breathing is better and she has less lower extremity edema. She remains in atrial fibrillation running between 90 in the low 100s. Blood pressure 134/74. Repeat blood work reveals hemoglobin 10.8. 05/18 Patient is in atrial fibrillation heart rate was up in the 130s+. During the night, metoprolol was increased to 75 mg twice daily by on-call group managing director. Patient has been asymptomatic. She is transition to Eliquis, Farxiga and Aldactone were added yesterday. Also IV Lasix was transitioned to oral Lasix as of yesterday. Blood pressure 134/81, heart rate 93 on 2 L nasal cannula. Repeat blood work reveals hemoglobin 9.1. Sodium 136, potassium 3.9, BUN 19 creatinine 0.87.. 05/19 Yesterday late afternoon, patient was in A-fib with RVR, on-call group managing director was contacted and patient was started on amiodarone drip. Patient remains in atrial fibrillation but rate is controlled. Heart rate is in the 80s and 90s. Blood pressure 112/72, pulse ox 97% on 2 L. Lower extremity edema is improved. She denies palpitations no chest pain. She states her breathing is okay. Physical examination: Gen: This is a frail-appearing 72-year-old female. In no acute respiratory distress. VS: reviewed HEENT: Head is atraumatic, normocephalic. Pupils equal, round. Sclerae is anicteric. NECK: Significant JVD. LUNGS: Decreased breath sounds bilateral bases. No intercostal retractions. HEART: Depressed heart sounds, irregular rate and rhythm. ABDOMEN: Soft No tenderness. EXTREMITIES: Minimal bilateral pedal edema. No calf tenderness. NEUROLOGICAL: Patient is awake, alert and oriented x3. Assessment: New onset paroxysmal atrial fibrillation with RVR, of unknown duration Acute heart failure, systolic Cardiomyopathy possibly stress-induced Uncontrolled hypertension Moderate mitral regurgitation Tobacco use and dependence, quit in March Plan: Continue current cardiac medications: Eliquis 5 mg twice daily, Farxiga 10 mg daily, Lasix 40 mg oral twice daily, lisinopril 5 mg twice daily, Lopressor 100 mg twice daily, Aldactone 25 mg daily Discontinue IV amiodarone and start oral 200 mg twice daily for rate control. Nurse practitioner note has been reviewed, I agree with documented findings and plan of care. Patient was seen and examined. Objective - Vital Signs Vital signs: Vital Signs Temp 98 F 05/20/23 08:00 Pulse 103 H 05/20/23 08:00 Resp 20 05/20/23 08:00 BP 114/72 05/20/23 08:00 Pulse Ox 99 05/20/23 08:00 FiO2 Intake & Output 05/19/23 05/20/23 05/20/23 18:59 06:59 18:59 Intake Total 236 118 Output Total 800 500 Balance -564 -500 118 Weight 60.9 kg Intake: Oral 236 118 Output: Urine 500 500 Urine/Stool Mix 300 Other: Voiding Method Bedside Commode Bedside Commode Diaper Diaper # Voids 1 # Bowel Movements 1 - Labs CBC & Chem 7: 05/19/23 08:43 05/19/23 08:43
[2023-05-20 12:50] LABS: African American GFR (CKD) 56 (>60 ml/min/1.73 sqM); Anion Gap 5 mmol/L; Blood Urea Nitrogen 25 mg/dL (7-17); Calcium 8.8 mg/dL (8.4-10.2); Carbon Dioxide 33 mmol/L (22-30); Chloride 95 mmol/L (98-107); Glucose 135 mg/dL (74-99); Non-African American GFR(CKD) 49 (>60 ml/min/1.73 sqM); Potassium 4.2 mmol/L (3.5-5.1); Sodium 133 mmol/L (137-145)
--- NOTE | 2023-05-20 15:30 | P.PN ---
Subjective Progress Note Date: 05/20/23 (delayed charting seen at 1005) Patient is a 72-year-old female with no known past medical history who presented with 6 weeks of shortness of breath, palpitations, and lower extremity edema. In the emergency department she underwent an extensive evaluation. On arrival she was hypertensive with a blood pressure of 178/159 and tachycardic with a heart rate of 134. Initial laboratory analysis was remarkable for white blood cell count of 10.8 and BNP of 4070. At that time EKG demonstrated atrial fibrillation with rapid ventricular response and chest x-ray was consistent with fluid overload state. She was started on IV Cardizem, heparin drip, and Lasix. She was admitted for further monitoring. Cardiology was consulted. She underwent echocardiogram which demonstrated an EF of 40 to 45% with mild pulmonary hypertension. Her rate was controlled and she was weaned off of her Cardizem drip. However then she went back into A-fib with rapid ventricular response and ultimately was started on amiodarone drip. She was started on heart failure medications including SGLT2 inhibitor, Lasix, Aldactone, lisinopril, and metoprolol. Patient seen and examined at bedside.She denies any chest pain or shortness of breath. She is worried about her leg swelling but states it is much better than prior. She feels as though she is not going to get better. She is still dealing with the loss of her who will past approximately 1 month ago and [facility]. Vital signs reviewed General: Nontoxic, no distress, appears at stated age Cardiovascular: S1S2 reg, no murmur Lungs: Course bs bilateral, no rhonchi, no rales, no accessory muscle use Abdominal: Soft, nontender to palpation, no guarding Ext: No gross muscle atrophy, 2+ edema b/l lower extremities, no contractures Neuro: CN II-XI grossly intact, no focal neuro deficits Psych: Alert, oriented, upset and crying Assessment/Plan: New onset atrial fibrillation with rapid ventricular response. 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 - increase in Cr due to forced diuresis and lisinopril, will d/c lisinopril for this evening and re-eval in AM, will continue to monitor in AM if continues to increase will need further medication adjustment Imaging: None enw Data Review: Labs reviewed today include basic metabolic profile which is remarkable for sodium of 133, BUN 25, creatinine 1.12 up from 0.087 DVT prophylaxis: Eliquis Anticipated discharge date: 24 to [address]: Home with home health This dictation was prepared using [employer] voice recognition software. Though every attempt is made to correct errors during dictation some may still exist. Objective - Vital Signs Vital signs: Vital Signs Temp 98 F 05/20/23 11:42 Pulse 91 05/20/23 11:42 Resp 20 05/20/23 11:42 BP 112/72 05/20/23 11:42 Pulse Ox 97 05/20/23 11:42 FiO2 Intake & Output 05/19/23 05/20/23 05/20/23 18:59 06:59 18:59 Intake Total 236 236 Output Total 800 500 Balance -564 -500 236 Weight 60.9 kg Intake: Oral 236 236 Output: Urine 500 500 Urine/Stool Mix 300 Other: Voiding Method Bedside Commode Bedside Commode Bedside Commode Diaper Diaper Diaper # Voids 1 # Bowel Movements 1 - Labs CBC & Chem 7: 05/19/23 08:43 05/20/23 12:18 Labs: Abnormal Lab Results - Last 24 Hours (Table) 05/20/23 Range/Units 12:18 Sodium 133 L (137-145) mmol/L Chloride 95 L (98-107) mmol/L Carbon Dioxide 33 H (22-30) mmol/L BUN 25 H (7-17) mg/dL Creatinine 1.12 H (0.52-1.04) mg/dL Glucose 135 H (74-99) mg/dL
[2023-05-21 09:47] VITALS: TEMP 98.2
[2023-05-21 11:26] LABS: African American GFR (CKD) 48 (>60 ml/min/1.73 sqM); Anion Gap 5 mmol/L; Blood Urea Nitrogen 25 mg/dL (7-17); Carbon Dioxide 35 mmol/L (22-30); Chloride 95 mmol/L (98-107); Glucose 115 mg/dL (74-99); Magnesium 2.1 mg/dL (1.6-2.3); Non-African American GFR(CKD) 42 (>60 ml/min/1.73 sqM); Potassium 3.9 mmol/L (3.5-5.1); Sodium 135 mmol/L (137-145)
[2023-05-21 11:54] VITALS: BP 122/75; PULSE 94; RESP 16
--- NOTE | 2023-05-21 13:57 | P.PN ---
Subjective Progress Note Date: 05/21/23 Consult reason: atrial fibrillation (New onset) History of present illness: History of present illness: This is a 72-year-old frail-appearing female with no previous cardiac history, does not follow with a copper roller handler printing and has not followed with a primary care practitioner in a long period of time. We have been asked to evaluate the patient for A-fib with RVR. Patient presented to the hospital stating that she could not catch her breath which has been going on for couple weeks. She denies having any cough no wheezing. She does have lower extremity edema. She denies having any chest pain. She does complain of orthopnea and palpitations. No d izziness or syncopal episode. She has a history of tobacco use and quit in March. She drinks tea. No alcohol use. She denies being diagnosed with any lung conditions no history of CVA. Noted the patient's about 1 month ago. EKG atrial fibrillation with RVR, nonspecific ST-T wave changes Chest x-ray: Cardiomegaly. Bilateral pleural effusions and pulmonary edema. Echocardiogram performed 05/17/2023 reveals EF 40 to 45%, mild to moderate mitral regurgitation with central jet, aortic sclerosis without stenosis, mild pulmonary hypertension, trace pericardial effusion. WBC 7.5, hemoglobin 9.5, platelet count 213. INR 1.1. Sodium 137, potassium 3.5, BUN 21 creatinine 0.76. Total bilirubin 2.8 otherwise liver function test are normal. Troponin 0.019. proBNP 4070. Magnesium 1.8. TSH 3.61. Home cardiac medications: None 05/17 Patient is seen today on the cardiac stepdown unit. She has been continued on IV heparin and IV Lasix. She states her breathing is better and she has less lower extremity edema. She remains in atrial fibrillation running between 90 in the low 100s. Blood pressure 134/74. Repeat blood work reveals hemoglobin 10.8. 05/18 Patient is in atrial fibrillation heart rate was up in the 130s+. During the night, metoprolol was increased to 75 mg twice daily by on-call copper roller handler printing. Patient has been asymptomatic. She is transition to Eliquis, Farxiga and Aldactone were added yesterday. Also IV Lasix was transitioned to oral Lasix as of yesterday. Blood pressure 134/81, heart rate 93 on 2 L nasal cannula. Repeat blood work reveals hemoglobin 9.1. Sodium 136, potassium 3.9, BUN 19 creatinine 0.87.. 05/19 Yesterday late afternoon, patient was in A-fib with RVR, on-call copper roller handler printing was contacted and patient was started on amiodarone drip. Patient remains in atrial fibrillation but rate is controlled. Heart rate is in the 80s and 90s. Blood pressure 112/72, pulse ox 97% on 2 L. Lower extremity edema is improved. She denies palpitations no chest pain. She states her breathing is okay. 05/20 Patient states that the lower extreme edema is still there but improving. She is anticipating discharge home today. She has been instructed to follow a low- sodium diet and avoid high salt items. Blood pressure 122/75, heart rate 94, pulse ox 94% on 2 L nasal cannula. Pulse ox 85% on room air. Repeat blood work reveals sodium 135, potassium 3.9, BUN 25 creatinine 1.26. Physical examination: Gen: This is a frail-appearing 72-year-old female. In no acute respiratory distress. VS: reviewed HEENT: Head is atraumatic, normocephalic. Pupils equal, round. Sclerae is anicteric. NECK: Significant JVD. LUNGS: Decreased breath sounds bilateral bases. No intercostal retractions. HEART: Depressed heart sounds, irregular rate and rhythm. ABDOMEN: Soft No tenderness. EXTREMITIES: Minimal bilateral pedal edema. No calf tenderness. NEUROLOGICAL: Patient is awake, alert and oriented x3. Assessment: New onset paroxysmal atrial fibrillation with RVR, of unknown duration Acute heart failure, systolic Cardiomyopathy possibly stress-induced Uncontrolled hypertension Moderate mitral regurgitation Tobacco use and dependence, quit in March Plan: Continue current cardiac medications: Eliquis 5 mg twice daily, Farxiga 10 mg daily, Lasix 40 mg oral twice daily, lisinopril 5 mg twice daily, Lopressor 100 mg twice daily, Aldactone 25 mg daily Continue amiodarone oral 200 mg twice daily for rate control. Patient is cleared for discharge from cardiology and may follow-up in the office in 1 week. Nurse practitioner note has been reviewed, I agree with documented findings and plan of care. Patient was seen and examined. Objective - Vital Signs Vital signs: Vital Signs Temp 98.2 F 05/21/23 09:31 Pulse 94 05/21/23 11:24 Resp 16 05/21/23 11:24 BP 122/75 05/21/23 11:24 Pulse Ox 94 L 05/21/23 11:24 FiO2 Intake & Output 05/20/23 05/21/23 05/21/23 18:59 06:59 18:59 Intake Total 420.4 118 Output Total 350 300 Balance 420.4 -350 -182 Weight 60.9 kg 62 kg Intake: Intake, IV Titration 66.4 Amount Amiodarone 450 mg In 66.4 Dextrose 5% in Water 250 ml @ 0.5 MG/MIN 16.667 mls/hr IV .Q15H [facility] Rx#: [id number] Oral 354 118 Output: Urine 350 300 Other: Voiding Method Bedside Commode Toilet Toilet Diaper # Bowel Movements 1 - Labs CBC & Chem 7: 05/19/23 08:43 05/21/23 10:33 Labs: Abnormal Lab Results - Last 24 Hours (Table) 05/20/23 05/21/23 Range/Units 12:18 10:33 Sodium 133 L 135 L (137-145) mmol/L Chloride 95 L 95 L (98-107) mmol/L Carbon Dioxide 33 H 35 H (22-30) mmol/L BUN 25 H 25 H (7-17) mg/dL Creatinine 1.12 H 1.26 H (0.52-1.04) mg/dL Glucose 135 H 115 H (74-99) mg/dL
--- NOTE | 2023-05-21 15:30 | P.DS ---
Providers Date of admission: 05/17/23 00:24 Expected date of discharge: 05/21/23 Attending physician: Ignacia Llamas MD Consults: 05/17/23 00:23 Consult Physician Routine Consulting Provider: Holly Mari Consult Reason/Comments: New afib with RVR Do you want consulting provider notified?: Yes Primary care physician: Stated None Hospital Course: Discharge Diagnosis: New onset atrial fibrillation with rapid ventricular response. 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 In the emergency department she underwent an extensive evaluation. On arrival she was hypertensive with a blood pressure of 178/159 and tachycardic with a heart rate of 134. Initial laboratory analysis was remarkable for white blood cell count of 10.8 and BNP of 4070. At that time EKG demonstrated atrial fibrillation with rapid ventricular response and chest x-ray was consistent with fluid overload state. She was started on IV Cardizem, heparin drip, and Lasix. She was admitted for further monitoring. Cardiology was consulted. She underwent echocardiogram which demonstrated an EF of 40 to 45% with mild pulmonary hypertension. Her rate was controlled and she was weaned off of her Cardizem drip. However then she went back into A-fib with rapid ventricular response and ultimately was started on amiodarone drip. She was started on heart failure medications including SGLT2 inhibitor, Lasix, Aldactone, lisinopril, and metoprolol. She continued to improve. She was able to come off of the amiodarone drip and onto oral amiodarone. Her heart rate stayed controlled. She was determined stable for discharge. She will require home O2 on discharge due to her congestive heart failure. Her room air oxygen s aturation was 85%. Of note patient did have increasing creatinine with max of 1.26 which was on the day of discharge. This was felt to be secondary to forced diuresis and initiation of ALESSIA inhibitor. Creatinine was 1.12 on 05/19 and then 1.26 on 05/20. She was therefore determined stable for discharge. She does not have a primary care physician and Dr. Ayala was suggested for her. Follow-up: Dr. Mari in 1 week, Dr. Ortiz in 1 week. New medications include Lopressor, Aldactone, amiodarone, Eliquis, Lasix, lisinopril, and Jardiance. Unfortunately this patient cannot have home health care on discharge as she does not have a primary care physician. She will take her weights daily. I also discussed this case with hospice bereavement services as the patient r ecently lost her and they will continue to follow with her. Patient seen and examined at bedside. Still feeling upset. Breathing is better. Lower extremity edema is slowly improving. Vital signs reviewed and stable. General: Nontoxic, no distress, appears at stated age Cardiovascular: S1S2 reg, no murmur, positive posterior tibial pulse bilateral, Lungs: Coarse breath sounds bilateral, no rhonchi, no rales, no accessory muscle use Abdominal: Soft, nontender to palpation, no guarding, no appreciable organomegaly Ext: No gross muscle atrophy, 2+ edema b/l lower extremities, no contractures Neuro: CN II-XI grossly intact, no focal neuro deficits Psych: Alert, oriented, appropriate affect A total of 35 minutes of time were spent preparing this complex discharge summary. Patient was discharged on 05/21/23. This dictation was prepared using [employer] voice recognition software. Though every attempt is made to correct errors during dictation some may still exist. Patient Condition at Discharge: Stable Plan - Discharge Summary Discharge Rx Participant: No New Discharge Prescriptions: New Metoprolol Tartrate [Lopressor] 100 mg PO BID #60 tab Spironolactone [Aldactone] 25 mg PO DAILY #30 tab Amiodarone [Cordarone] 200 mg PO BID #60 tab Apixaban [Eliquis] 5 mg PO BID #60 tab Furosemide [Lasix] 40 mg PO BID@0900,1600 #60 tab lisinopriL [Zestril] 5 mg PO BID #60 tab Empagliflozin [Jardiance] 10 mg PO DAILY #30 tab Discontinued Aspirin 325 mg PO QID PRN PRN Reason: Pain Discharge Medication List Amiodarone [Cordarone] 200 mg PO BID #60 tab 05/21/23 [Rx] Apixaban [Eliquis] 5 mg PO BID #60 tab 05/21/23 [Rx] Empagliflozin [Jardiance] 10 mg PO DAILY #30 tab 05/21/23 [Rx] Furosemide [Lasix] 40 mg PO BID@0900,1600 #60 tab 05/21/23 [Rx] Metoprolol Tartrate [Lopressor] 100 mg PO BID #60 tab 05/21/23 [Rx] Spironolactone [Aldactone] 25 mg PO DAILY #30 tab 05/21/23 [Rx] lisinopriL [Zestril] 5 mg PO BID #60 tab 05/21/23 [Rx] Follow up Appointment(s)/Referral(s): Holly Mari MD [STAFF PHYSICIAN] - 1 Week Sergo Ayala DO [REFERRING] - 1 Week (this will be a new patient appointment) Activity/Diet/Wound Care/Special Instructions: Activity: As tolerated Diet: Heart Healthy low sodium diet, 2 liter fluid restriction Special Instructions: Take your weight daily and make a list of it. Please continue to follow with [facility] bereavement services. Discharge/Stand Alone Forms: Who Do I Call?, Community Resources, Help In The Home, Outpatient Counseling, Area PCPs Discharge Disposition: HOME SELF-CARE
== END 2023-05-21 13:51 | disposition home or self-care (01) | DRG 291 ==
LOC: EC 22:47 → 3SCARD 05-17 00:24
PROVIDERS: ADMIT Internal Medicine; ATTEND Internal Medicine
DX: I11.0 Hypertensive heart disease with heart failure (principal); I50.21 Acute systolic (congestive) heart failure; J96.01 Acute respiratory failure with hypoxia; I31.39 Other pericardial effusion (noninflammatory); I48.0 Paroxysmal atrial fibrillation; Z63.4 Disappearance and death of family member; E87.6 Hypokalemia; R00.0 Tachycardia, unspecified; I42.8 Other cardiomyopathies; I34.0 Nonrheumatic mitral (valve) insufficiency; Z79.01 Long term (current) use of anticoagulants; I27.20 Pulmonary hypertension, unspecified; Z79.899 Other long term (current) drug therapy; Z88.5 Allergy status to narcotic agent; I70.0 Atherosclerosis of aorta
CPT/HCPCS: 36415; 71045; 80048; 80053; 83735; 83880; 84443; 84484; 85025; 85027; 85610; 85730; 93005; 93306; 94760; 96365; 96366; 96368; 96375; 96376; 99291

== ENCOUNTER 2023-06-08 18:20 | Emergency (ER) | payer MEDICARE ==
--- NOTE | 2023-06-08 18:29 | ED ---
Psych HPI <García Varner - Last Filed: 06/09/23 10:23> <Floyd Casanova - Last Filed: 06/10/23 08:42> - General Source: RN notes reviewed, old records reviewed Mode of arrival: EMS Limitations: no limitations - History of Present Illness MD Complaint: suicidal ideation, feels depressed, altered mental status -: days(s) Associated Psychiatric Symptoms: depression, suicidal ideation History of same: Yes Quality: constant Improves With: none, medication Context: not taking psychiatric medications, significant life stressor Associated Symptoms: denies other symptoms Treatments Prior to Arrival: placed on mental health hold If Self Harm: admits thoughts of self harm <Scooter Goss - Last Filed: 06/12/23 18:57> - General Stated Complaint: Mental Health Time Seen by Provider: 06/08/23 18:24 - History of Present Illness Initial Comments: This is a 72-year-old female to the ER for evaluation today. Patient presents today for evaluation regards to suicidal thoughts. Patient states she is sick of living, sick of being sick sick of her age, she is just very tired of multiple issues. Patient did take a knife at home to her right forearm with no active current bleeding. Patient does feel like her heart is racing and did call EMS for cutting herself (Scooter Goss) - Related Data Home Medications Medication Instructions Recorded Confirmed lisinopriL [Zestril] 5 mg PO DAILY 06/08/23 06/08/23 Previous Rx's Medication Instructions Recorded Amiodarone [Cordarone] 200 mg PO BID #60 tab 05/21/23 Apixaban [Eliquis] 5 mg PO BID #60 tab 05/21/23 Empagliflozin [Jardiance] 10 mg PO DAILY #30 tab 05/21/23 Furosemide [Lasix] 40 mg PO BID@0900,1600 #60 tab 05/21/23 Metoprolol Tartrate [Lopressor] 100 mg PO BID #60 tab 05/21/23 Spironolactone [Aldactone] 25 mg PO DAILY #30 tab 05/21/23 Allergies Allergy/AdvReac Type Severity Reaction Status Date / Time codeine AdvReac Nausea Verified 06/08/23 20:18 Review of Systems ROS Other: All systems not noted in ROS Statement are negative. <García Varner - Last Filed: 06/09/23 10:23> ROS Other: All systems not noted in ROS Statement are negative. <Floyd Casanova - Last Filed: 06/10/23 08:42> ROS Other: All systems not noted in ROS Statement are negative. <Scooter Goss - Last Filed: 06/12/23 18:57> ROS Statement: Those systems with pertinent positive or pertinent negative responses have been documented in the HPI. Past Medical History Additional Past Medical History / Comment(s): migraine History of Any Multi-Drug Resistant Organisms: None Reported Past Surgical History: No Surgical Hx Reported Past Anesthesia/Blood Transfusion Reactions: No Reported Reaction Past Psychological History: No Psychological Hx Reported Past Alcohol Use History: None Reported Past Drug Use History: None Reported <Scooter Goss - Last Filed: 06/12/23 18:57> General Exam General appearance: alert, in no apparent distress Head exam: Present: atraumatic, normocephalic, normal inspection Eye exam: Present: normal appearance, PERRL, EOMI. Absent: scleral icterus, conjunctival injection, periorbital swelling ENT exam: Present: normal exam, mucous membranes moist Neck exam: Present: normal inspection. Absent: tenderness, meningismus, lymphadenopathy Respiratory exam: Present: normal lung sounds bilaterally. Absent: respiratory distress, wheezes, rales, rhonchi, stridor Cardiovascular Exam: Present: regular rate, normal rhythm, normal heart sounds. Absent: systolic murmur, diastolic murmur, rubs, gallop, clicks GI/Abdominal exam: Present: soft, normal bowel sounds. Absent: distended, tenderness, guarding, rebound, rigid Extremities exam: Present: normal inspection, full ROM, normal capillary refill. Absent: tenderness, pedal edema, joint swelling, calf tenderness Back exam: Present: normal inspection Neurological exam: Present: alert, oriented X3, CN II-XII intact Psychiatric exam: Present: normal affect, normal mood Skin exam: Present: warm, dry, intact, normal color. Absent: rash <Scooter Goss - Last Filed: 06/12/23 18:57> - General Exam Comments Initial Comments: Right upper extremity laceration (Scooter Goss) Course <Scooter Goss - Last Filed: 06/12/23 18:57> Vital Signs 06/08/23 06/08/23 06/08/23 18:39 19:00 19:30 Temperature 98.1 F Pulse Rate 142 H 116 H 138 H Respiratory 18 18 14 Rate Blood Pressure 140/124 150/124 150/124 O2 Sat by Pulse 99 Oximetry 06/08/23 06/08/23 06/08/23 19:52 20:00 20:30 Temperature Pulse Rate 90 85 92 Respiratory 22 18 15 Rate Blood Pressure 134/81 134/81 124/90 O2 Sat by Pulse 98 Oximetry 06/08/23 06/08/23 06/08/23 21:00 21:22 21:30 Temperature Pulse Rate 87 87 82 Respiratory 15 16 11 L Rate Blood Pressure 120/90 110/86 120/80 O2 Sat by Pulse 98 Oximetry 06/08/23 06/08/23 06/08/23 22:00 22:30 23:00 Temperature Pulse Rate 112 H 111 H 90 Respiratory 22 15 17 Rate Blood Pressure 127/85 123/79 116/71 O2 Sat by Pulse 98 Oximetry 06/08/23 06/09/23 06/09/23 23:14 00:00 02:22 Temperature Pulse Rate 78 87 91 Respiratory 16 18 18 Rate Blood Pressure 109/78 107/68 101/66 O2 Sat by Pulse 99 98 99 Oximetry 06/09/23 06/09/23 06/09/23 04:00 06:00 11:56 Temperature Pulse Rate 89 86 85 Respiratory 16 16 21 Rate Blood Pressure 94/60 96/63 112/77 O2 Sat by Pulse 98 96 98 Oximetry 06/09/23 06/09/23 06/09/23 15:00 18:00 23:30 Temperature Pulse Rate 103 H 118 H 150 H Respiratory 20 20 18 Rate Blood Pressure 100/73 119/80 115/93 O2 Sat by Pulse 97 97 96 Oximetry 06/10/23 06/10/23 06/10/23 00:10 00:20 00:57 Temperature Pulse Rate 147 H 99 93 Respiratory 16 16 15 Rate Blood Pressure 104/70 112/75 103/70 O2 Sat by Pulse 98 99 97 Oximetry 06/10/23 06/10/23 06/10/23 02:18 03:29 04:00 Temperature Pulse Rate 95 78 80 Respiratory 19 20 16 Rate Blood Pressure 107/72 118/80 118/80 O2 Sat by Pulse 94 L 96 95 Oximetry 06/10/23 06/10/23 08:39 11:54 Temperature 98.5 F Pulse Rate 99 100 Respiratory 14 17 Rate Blood Pressure 121/85 134/78 O2 Sat by Pulse 98 96 Oximetry - Reevaluation(s) Reevaluation #1: 06/08/23 19:29 Medical records reviewed (Scooter Goss) Reevaluation #2: 06/08/23 21:26 Medically cleared for psychiatric evaluation 06/08/23 21:27 Heart rate is improved with rate control Laceration repair with Dermabond (Scooter Goss) Reevaluation #3: Patient informed of results questions answered Heart rate continues to be improved here in the ER (Scooter Goss) Reevaluation #4: Was pt. sent in by a medical professional or institution (, [facility], MOSAIC WORKER, urgent care, hospital, or senior care...) When possible be specific @ -no Did you speak to anyone other than the patient for history (EMS, parent, family, police, friend...)? What history was obtained from this source @ -no Did you review nursing and triage notes (agree or disagree)? Why? @ -agree Are old charts reviewed (outside hosp., previous admission, EMS record, old EKG, old radiological studies, urgent care reports/EKG's, senior care records)? Rep ort findings @ -yes Differential Diagnosis (chest pain, altered mental status, abdominal pain women, abdominal pain men, vaginal bleeding, weakness, fever, dyspnea, syncope, headache, dizziness, GI bleed, back pain, seizure, CVA, palpatations, mental health, musculoskeletal)? @ -prior EKG interpreted by me (3pts min.). @ -yes X-rays interpreted by me (1pt min.). @ -no CT interpreted by me (1pt min.). @ -no U/S interpreted by me (1pt. min.). @ -no What testing was considered but not performed or refused? (CT, X-rays, U/S, labs)? Why? @ -none What meds were considered but not given or refused? Why? @ -none Did you discuss the management of the patient with other professionals (profes sionals i.e. Dr., PA, MOSAIC WORKER, lab, RT, psych nurse, social contact worker, ball rolling machine operator, teacher, military police officer, case assembler)? Give summary @ -no Was smoking cessation discussed for >3mins.? @ -no Was critical care preformed (if so, how long)? @ -yes31 Were there social determinants of health that impacted care today? How? (Homelessness, low income, unemployed, alcoholism, drug addiction, transportation, low edu. Level, literacy, decrease access to med. care, correction, rehab)? @ -none Was there de-escalation of care discussed even if they declined (Discuss DNR or withdrawal of care, Hospice)? DNR status @ -no What co-morbidities impacted this encounter? (DM, HTN, Smoking, COPD, CAD, Cancer, CVA, ARF, Chemo, Hep., AIDS, mental health diagnosis, sleep apnea, morbid obesity)? @ -none Was patient admitted / discharged? Hospital course, mention meds given and route, prescriptions, significant lab abnormalities, going to OR and other pertinent info. @ - 72 female for psychiatric evaluation with depression and not having significant desire to live. Patient has improved heart rate here in the ER symptoms are dramatically improved and patient will be discharged discharge and cleared medically for psychiatric evaluation Transfer for psychiatric evaluation Undiagnosed new problem with uncertain prognosis? @ -no Drug Therapy requiring intensive monitoring for toxicity (Heparin, Nitro, Insulin, Cardizem)? @ -no Were any procedures done? @ -no Diagnosis/symptom? @ -Depression, atrial fibrillation with RVR Acute, or Chronic, or Acute on Chronic? @ -Acute Uncomplicated (without systemic symptoms) or Complicated (systemic symptoms)? @ -Complicated Side effects of treatment? @ -no Exacerbation, Progression, or Severe Exacerbation? @ -exacerbation Poses a threat to life or bodily function? How? (Chest pain, [place], [place], pneumonia, PE, COPD, DKA, ARF, appy, cholecystitis, CVA, Diverticulitis, Homicidal, Suicidal, threat to staff... and all critical care pts) @ -yes acute psychiatric illness with self-harm (Scooter Goss) Procedures - Laceration Laceration #1 Consent Obtained: verbal consent Indication: laceration Site: upper extremity Size (cm): 3 Description: linear Depth: simple, single layer Size of Sutures: other (dermabond) Patient Tolerated Procedure: well <Scooter Goss - Last Filed: 06/12/23 18:57> Medical Decision Making - Lab Data Result diagrams: 06/08/23 19:16 06/08/23 19:16 <García Varner - Last Filed: 06/09/23 10:23> - Lab Data Result diagrams: 06/08/23 19:16 06/08/23 19:16 <Floyd Casanova - Last Filed: 06/10/23 08:42> - Lab Data Result diagrams: 06/08/23 19:16 06/08/23 19:16 - EKG Data -: EKG Interpreted by Me (EKG is A-fib with RVR 128 QRS 81 QTc 356) <Scooter Goss - Last Filed: 06/12/23 18:57> - Medical Decision Making I did speak with psychiatric nurse with plans for psychiatric admission or transfer. Diagnosis: Depression, suicidal ideation, laceration, suicide attempt Acute, acute, acute, acute Plan for psychiatric admission. (García Varner) Patient was petitioned and clinical certificate is in the chart. Was medically cleared by prior provider. Was awaiting placement for psychiatric services. Patient accepted to [facility]. Accepting physician is Dr. Steele. Patient will be transferred in stable condition to inpatient psychiatry. (Floyd Casanova) 72 female for psychiatric evaluation with depression and not having significant desire to live. Patient has improved heart rate here in the ER symptoms are dramatically improved and patient will be discharged discharge and cleared medically for psychiatric evaluation (Scooter Goss) - Lab Data Lab Results 06/08/23 06/08/23 06/08/23 Range/Units 19:16 19:16 19:16 WBC 7.9 (3.8-10.6) k/uL RBC 3.74 L (3.80-5.40) m/uL Hgb 11.2 L (11.4-16.0) gm/dL Hct 33.9 L (34.0-46.0) % MCV 90.6 (80.0-100.0) fL MCH 30.0 (25.0-35.0) pg MCHC 33.1 (31.0-37.0) g/dL RDW 16.5 H (11.5-15.5) % Plt Count 218 (150-450) k/uL MPV 7.0 Neutrophils % 85 % Lymphocytes % 9 % Monocytes % 4 % Eosinophils % 1 % Basophils % 1 % Neutrophils # 6.7 (1.3-7.7) k/uL Lymphocytes # 0.7 L (1.0-4.8) k/uL Monocytes # 0.3 (0-1.0) k/uL Eosinophils # 0.0 (0-0.7) k/uL Basophils # 0.0 (0-0.2) k/uL Poikilocytosis Slight Anisocytosis Slight PT 11.7 (10.0-12.5) sec INR 1.1 (<1.2) APTT 23.4 (22.0-30.0) sec Sodium 140 (137-145) mmol/L Potassium 4.0 (3.5-5.1) mmol/L Chloride 104 (98-107) mmol/L Carbon Dioxide 24 (22-30) mmol/L Anion Gap 12 mmol/L BUN 41 H (7-17) mg/dL Creatinine 1.63 H (0.52-1.04) mg/dL Est GFR (CKD-EPI)AfAm 36 (>60 ml/min/1.73 sqM) Est GFR (CKD-EPI)NonAf 31 (>60 ml/min/1.73 sqM) Glucose 101 H (74-99) mg/dL Plasma Lactic Acid Gab (0.7-2.0) mmol/L Calcium 9.0 (8.4-10.2) mg/dL Phosphorus 3.8 (2.5-4.5) mg/dL Magnesium 2.4 H (1.6-2.3) mg/dL Total Bilirubin 2.1 H (0.2-1.3) mg/dL AST 24 (14-36) U/L ALT 18 (4-34) U/L Alkaline Phosphatase 66 (38-126) U/L Troponin I (0.000-0.034) ng/mL NT-Pro-B Natriuret Pep 2550 pg/mL Total Protein 6.5 (6.3-8.2) g/dL Albumin 4.0 (3.5-5.0) g/dL TSH 1.810 (0.465-4.680) mIU/L Urine Color Urine Appearance (Clear) Urine pH (5.0-8.0) Ur Specific [place] (1.001-1.035) Urine Protein (Negative) Urine Glucose (UA) (Negative) Urine Ketones (Negative) Urine Blood (Negative) Urine Nitrite (Negative) Urine Bilirubin (Negative) Urine Urobilinogen (<2.0) mg/dL Ur Leukocyte Esterase (Negative) Salicylates <1.0 mg/dL Urine Opiates Screen (NotDetected) Ur Oxycodone Screen (NotDetected) Urine Methadone Screen (NotDetected) Acetaminophen <10.0 ug/mL Ur Barbiturates Screen (NotDetected) U Tricyclic Antidepress (NotDetected) Ur Phencyclidine Scrn (NotDetected) Ur Amphetamines Screen (NotDetected) U Methamphetamines Scrn (NotDetected) U Benzodiazepines Scrn (NotDetected) Urine Cocaine Screen (NotDetected) U Marijuana (THC) Screen (NotDetected) Serum Alcohol <10 mg/dL SARS-CoV-2 (PCR) (Not Detectd) 06/08/23 06/08/23 06/09/23 Range/Units 19:16 19:16 07:15 WBC (3.8-10.6) k/uL RBC (3.80-5.40) m/uL Hgb (11.4-16.0) gm/dL Hct (34.0-46.0) % MCV (80.0-100.0) fL MCH (25.0-35.0) pg MCHC (31.0-37.0) g/dL RDW (11.5-15.5) % Plt Count (150-450) k/uL MPV Neutrophils % % Lymphocytes % % Monocytes % % Eosinophils % % Basophils % % Neutrophils # (1.3-7.7) k/uL Lymphocytes # (1.0-4.8) k/uL Monocytes # (0-1.0) k/uL Eosinophils # (0-0.7) k/uL Basophils # (0-0.2) k/uL Poikilocytosis Anisocytosis PT (10.0-12.5) sec INR (<1.2) APTT (22.0-30.0) sec Sodium (137-145) mmol/L Potassium (3.5-5.1) mmol/L Chloride (98-107) mmol/L Carbon Dioxide (22-30) mmol/L Anion Gap mmol/L BUN (7-17) mg/dL Creatinine (0.52-1.04) mg/dL Est GFR (CKD-EPI)AfAm (>60 ml/min/1.73 sqM) Est GFR (CKD-EPI)NonAf (>60 ml/min/1.73 sqM) Glucose (74-99) mg/dL Plasma Lactic Acid Gab 2.0 (0.7-2.0) mmol/L Calcium (8.4-10.2) mg/dL Phosphorus (2.5-4.5) mg/dL Magnesium (1.6-2.3) mg/dL Total Bilirubin (0.2-1.3) mg/dL AST (14-36) U/L ALT (4-34) U/L Alkaline Phosphatase (38-126) U/L Troponin I 0.017 (0.000-0.034) ng/mL NT-Pro-B Natriuret Pep pg/mL Total Protein (6.3-8.2) g/dL Albumin (3.5-5.0) g/dL TSH (0.465-4.680) mIU/L Urine Color Light Yellow Urine Appearance Clear (Clear) Urine pH 5.5 (5.0-8.0) Ur Specific [place] 1.011 (1.001-1.035) Urine Protein Negative (Negative) Urine Glucose (UA) 4+ H (Negative) Urine Ketones Negative (Negative) Urine Blood Negative (Negative) Urine Nitrite Negative (Negative) Urine Bilirubin Negative (Negative) Urine Urobilinogen <2.0 (<2.0) mg/dL Ur Leukocyte Esterase Negative (Negative) Salicylates mg/dL Urine Opiates Screen Not Detected (NotDetected) Ur Oxycodone Screen Not Detected (NotDetected) Urine Methadone Screen Not Detected (NotDetected) Acetaminophen ug/mL Ur Barbiturates Screen Not Detected (NotDetected) U Tricyclic Antidepress Not Detected (NotDetected) Ur Phencyclidine Scrn Not Detected (NotDetected) Ur Amphetamines Screen Not Detected (NotDetected) U Methamphetamines Scrn Not Detected (NotDetected) U Benzodiazepines Scrn Not Detected (NotDetected) Urine Cocaine Screen Not Detected (NotDetected) U Marijuana (THC) Screen Not Detected (NotDetected) Serum Alcohol mg/dL SARS-CoV-2 (PCR) (Not Detectd) 06/10/23 Range/Units 06:56 WBC (3.8-10.6) k/uL RBC (3.80-5.40) m/uL Hgb (11.4-16.0) gm/dL Hct (34.0-46.0) % MCV (80.0-100.0) fL MCH (25.0-35.0) pg MCHC (31.0-37.0) g/dL RDW (11.5-15.5) % Plt Count (150-450) k/uL MPV Neutrophils % % Lymphocytes % % Monocytes % % Eosinophils % % Basophils % % Neutrophils # (1.3-7.7) k/uL Lymphocytes # (1.0-4.8) k/uL Monocytes # (0-1.0) k/uL Eosinophils # (0-0.7) k/uL Basophils # (0-0.2) k/uL Poikilocytosis Anisocytosis PT (10.0-12.5) sec INR (<1.2) APTT (22.0-30.0) sec Sodium (137-145) mmol/L Potassium (3.5-5.1) mmol/L Chloride (98-107) mmol/L Carbon Dioxide (22-30) mmol/L Anion Gap mmol/L BUN (7-17) mg/dL Creatinine (0.52-1.04) mg/dL Est GFR (CKD-EPI)AfAm (>60 ml/min/1.73 sqM) Est GFR (CKD-EPI)NonAf (>60 ml/min/1.73 sqM) Glucose (74-99) mg/dL Plasma Lactic Acid Gab (0.7-2.0) mmol/L Calcium (8.4-10.2) mg/dL Phosphorus (2.5-4.5) mg/dL Magnesium (1.6-2.3) mg/dL Total Bilirubin (0.2-1.3) mg/dL AST (14-36) U/L ALT (4-34) U/L Alkaline Phosphatase (38-126) U/L Troponin I (0.000-0.034) ng/mL NT-Pro-B Natriuret Pep pg/mL Total Protein (6.3-8.2) g/dL Albumin (3.5-5.0) g/dL TSH (0.465-4.680) mIU/L Urine Color Urine Appearance (Clear) Urine pH (5.0-8.0) Ur Specific [place] (1.001-1.035) Urine Protein (Negative) Urine Glucose (UA) (Negative) Urine Ketones (Negative) Urine Blood (Negative) Urine Nitrite (Negative) Urine Bilirubin (Negative) Urine Urobilinogen (<2.0) mg/dL Ur Leukocyte Esterase (Negative) Salicylates mg/dL Urine Opiates Screen (NotDetected) Ur Oxycodone Screen (NotDetected) Urine Methadone Screen (NotDetected) Acetaminophen ug/mL Ur Barbiturates Screen (NotDetected) U Tricyclic Antidepress (NotDetected) Ur Phencyclidine Scrn (NotDetected) Ur Amphetamines Screen (NotDetected) U Methamphetamines Scrn (NotDetected) U Benzodiazepines Scrn (NotDetected) Urine Cocaine Screen (NotDetected) U Marijuana (THC) Screen (NotDetected) Serum Alcohol mg/dL SARS-CoV-2 (PCR) Not Detected (Not Detectd) Critical Care Time Critical Care Time: Yes Total Critical Care Time: 31 <Scooter Goss - Last Filed: 06/12/23 18:57> Disposition Is patient prescribed a controlled substance at d/c from ED?: No Time of Disposition: 10:24 <García Varner - Last Filed: 06/09/23 10:23> <Floyd Casanova - Last Filed: 06/10/23 08:42> Is patient prescribed a controlled substance at d/c from ED?: No <Scooter Goss - Last Filed: 06/12/23 18:57> Clinical Impression: Laceration, Depression, Suicidal ideation, Atrial fibrillation with RVR, Self- harm, Laceration of right forearm Disposition: TRANSFER TO PSYCH HOSP/UNIT Condition: Fair Referrals: None,Stated [REFERRING] - 1-2 days
[2023-06-08 19:34] LABS: Anisocytosis Slight; Basophils % (A) 1 %; Eosinophils % (A) 1 %; HCT 33.9 % (34.0-46.0); HGB 11.2 gm/dL (11.4-16.0); Lymphocytes # (A) 0.7 k/uL (1.0-4.8); Lymphocytes % (A) 9 %; MCHC 33.1 g/dL (31.0-37.0); MCV 90.6 fL (80.0-100.0); Monocytes # (A) 0.3 k/uL (0-1.0); Monocytes % (A) 4 %; Neutrophils # (A) 6.7 k/uL (1.3-7.7); Neutrophils % (A) 85 %; Platelet Count 218 k/uL (150-450); Poikilocytosis Slight; RBC 3.74 m/uL (3.80-5.40); RDW 16.5 % (11.5-15.5); WBC 7.9 k/uL (3.8-10.6)
[2023-06-08] MEDS: DILTIAZEM 5 MG/ML 5 ML VIAL IVP STA ×2 (19:39→21:15)
[2023-06-08] MEDS: ONDANSETRON 4 MG/2 ML VIAL IVP STA (19:39)
[2023-06-08] MEDS: LORazepam 2 MG/ML INJ IV STA (19:39)
[2023-06-08] MEDS: SODIUM CHLORIDE 0.9% 1,000 ML IV STA (19:40)
[2023-06-08 19:42] LABS: ALT 18 U/L (4-34); AST 24 U/L (14-36); Acetaminophen <10.0 ug/mL; African American GFR (CKD) 36 (>60 ml/min/1.73 sqM); Alcohol <10 mg/dL; Alkaline Phosphatase 66 U/L (38-126); Anion Gap 12 mmol/L; Blood Urea Nitrogen 41 mg/dL (7-17); Carbon Dioxide 24 mmol/L (22-30); Chloride 104 mmol/L (98-107); Glucose 101 mg/dL (74-99); INR 1.1 (<1.2); Magnesium 2.4 mg/dL (1.6-2.3); Non-African American GFR(CKD) 31 (>60 ml/min/1.73 sqM); Phosphorus 3.8 mg/dL (2.5-4.5); Salicylate <1.0 mg/dL; Sodium 140 mmol/L (137-145); Total Bilirubin 2.1 mg/dL (0.2-1.3); Total Protein 6.5 g/dL (6.3-8.2)
[2023-06-08 19:43] LABS: Partial Thromboplastin Time 23.4 sec (22.0-30.0); Prothrombin Time 11.7 sec (10.0-12.5)
[2023-06-08 19:51] LABS: NT-Pro-B-Type Natriuretic Pept 2550 pg/mL
[2023-06-08] MEDS: TOPICAL SKIN ADHESIVE 1 EACH AMP TOPICAL ONE (22:04)
[2023-06-09 07:41] LABS: Appearance,Urine Clear (Clear); Bilirubin,Urine Negative (Negative); Blood,Urine Negative (Negative); Color,Urine Light Yellow; Glucose,Urine (UA) 4+ (Negative); Ketones,Urine Negative (Negative); Leukocyte Esterase,Urine Negative (Negative); Nitrite,Urine Negative (Negative); PH, Urine 5.5 (5.0-8.0); Protein,Urine Negative (Negative); Specific Gravity,Urine 1.011 (1.001-1.035); Urobilinogen,Urine <2.0 mg/dL (<2.0)
[2023-06-09 07:54] LABS: Amphetamine Screen,Urine Not Detected (NotDetected); Barbiturate Screen,Urine Not Detected (NotDetected); Benzodiazepines Screen,Urine Not Detected (NotDetected); Cocaine Screen,Urine Not Detected (NotDetected); Methadone Screen, Urine Not Detected (NotDetected); Opiate Screen,Urine Not Detected (NotDetected); Oxycodone Screen, Urine Not Detected (NotDetected); Phencyclidine Screen,Urine Not Detected (NotDetected); Tricyclic Antidepressant,Urine Not Detected (NotDetected); Urn Cannabinoid Scrn Not Detected (NotDetected)
[2023-06-10] MEDS: DILTIAZEM 5 MG/ML 5 ML VIAL IVP STA (00:13)
[2023-06-10] MEDS: APIXABAN 5 MG TAB PO SCH (00:56)
[2023-06-10] MEDS: METOPROLOL TARTRATE 50 MG TAB PO SCH (00:56)
[2023-06-10 08:57] VITALS: TEMP 98.5
[2023-06-10] MEDS: FUROSEMIDE 40 MG TAB PO SCH (10:20)
[2023-06-10] MEDS: AMIODARONE 200 MG TAB PO SCH (10:20)
[2023-06-10] MEDS: DAPAGLIFLOZIN PROPANEDIOL 10 MG TABLET PO SCH (10:20)
[2023-06-10 12:21] VITALS: BP 134/78; PULSE 100; RESP 17
== END 2023-06-10 11:58 ==
LOC: EC 18:20
DX: S51.811A Laceration without foreign body of right forearm, initial encounter (principal); F32.A Depression, unspecified; I48.91 Unspecified atrial fibrillation; Z11.52 Encounter for screening for COVID-19; Z88.5 Allergy status to narcotic agent; X78.1XXA Intentional self-harm by knife, initial encounter; Y92.009 Unspecified place in unspecified non-institutional (private) residence as the place of occurrence of the external cause
CPT/HCPCS: 82075; 36415; 93005; 83880; 80053; 83605; 83735; 84100; 84443; 84484; 85025; 85610; 85730; 81003; 80306; 80143; 87635; 80179; 12002; 99291; 96374; 96375 ×2; 96376 ×2; 96361 ×2; G0480; J2060; J2405; 80320

== ENCOUNTER → 2023-07-20 | Outpatient (CLI) | payer MEDICARE ==
[2023-07-20 18:34] LABS: HCT 34.9 % (37.2-46.3); HGB 10.9 g/dL (12.0-15.0); MCH 30.4 pg (27.0-32.0); MCHC 31.2 g/dL (32.0-37.0); MCV 97.5 FL (80.0-97.0); Mean Platelet Volume 9.6 FL (9.5-12.2); NRBC Per 100 WBC 0 X 10*3/uL (0.00-0.01); Platelet Count 271 X 10*3/uL (140-440); RBC 3.58 X 10*6/uL (4.10-5.20); RDW 18.4 % (11.5-14.5); WBC 8.18 X 10*3/uL (4.50-10.00)
[2023-07-20 21:47] LABS: NT-Pro-B-Type Natriuretic Pept 3394 pg/mL (0-125)
[2023-07-20 23:41] LABS: % Iron Saturation 13.95 (12.00-45.00); Iron 65 UG/DL (50-170); Total Iron Binding Capacity 466 UG/DL (228-460)
[2023-07-20 23:46] LABS: ALT 52 U/L (8-44); AST 33 U/L (13-35); Albumin 4.6 g/dL (3.8-4.9); Albumin/Globulin Ratio 1.77 Ratio (1.60-3.17); Alkaline Phosphatase 73 U/L (41-126); BUN/Creat Ratio 26.21 Ratio (12.00-20.00); Blood Urea Nitrogen 49.8 mg/dL (9.0-27.0); Calcium 9.8 mg/dL (8.7-10.3); Carbon Dioxide 22.5 mmol/L (21.6-31.8); Chloride 98 mmol/L (96-109); Globulin 2.6 g/dL (1.6-3.3); Glucose 110 mg/dL (70-110); Potassium 4.9 mmol/L (3.5-5.5); Sodium 137 mmol/L (135-145); Total Bilirubin 0.8 mg/dL (0.3-1.2); Total Protein 7.2 g/dL (6.2-8.2)
== END | disposition home or self-care (01) ==
LOC: LABWHC1 13:19
PROVIDERS: ATTEND Student in an Organized Health Care Education/Training Program
DX: I50.9 Heart failure, unspecified (principal); E11.22 Type 2 diabetes mellitus with diabetic chronic kidney disease; N18.9 Chronic kidney disease, unspecified; D63.1 Anemia in chronic kidney disease
CPT/HCPCS: 36415; 80053; 82306; 82728; 83036; 83540; 83550; 83880; 84443; 85027

== ENCOUNTER 2023-07-26 06:12 | Day surgery (SDC) | payer MEDICARE ==
[~2023-07-26 06:12] MED LIST: LACTATED RINGERS 1,000 ML IV SCH
[2023-07-26] MEDS: SODIUM CHLORIDE 0.9% 1,000 ML IV SCH (07:05)
[2023-07-26 07:08] LABS: Glucose,Whole Blood 98 mg/dL (70-110)
[2023-07-26] MEDS: BENZOCAINE SPRAY 1 CAN TOPICAL ONE ×2 (07:25→07:40)
[2023-07-26] MEDS ORDERED: PROPOFOL 10 MG/ML 20 ML VIAL IV ONE (07:40)
[2023-07-26] MEDS ORDERED: LIDOCAINE 1% INJ 10MG/ML (20 ML MDV) ONE (07:40)
[2023-07-26 09:07] VITALS: BP 107/64; PULSE 47; RESP 16; TEMP 97
--- NOTE | 2023-07-26 13:33 | P.TEE ---
Date of Procedure: 07/26/23 Description of Procedure(s): Procedure performed: 1. Transesophageal Echocardiogram. 2. Synchronized Cardioversion. Indications: Persistent atrial fibrillation Consent: I have discussed the risks, benefits and alternative therapies for the above-mentioned procedure. The patient has indicated understanding and acceptance of the risks of the procedure. Signed consent was obtained and was placed in the paper chart. Moderate conscious sedation: Moderate conscious sedation was administered by anesthesia, see separate report. Procedural Steps: Timeout was performed in usual fashion. Patient's heart rate, blood pressure, oxygen saturation and ECG were monitored. After achieving appropriate moderate conscious sedation, CECILIA CECILIA probe was advanced without difficulty and without any immediate complications to the esophagus. CECILIA study was performed with color flow doppler, pulsed wave doppler and continuous wave doppler. Agitated saline bubbles were injected to assess for any intra-atrial shunt. The probe was then removed. SYNCHRONIZED CARDIOVERSION After making sure that there is no evidence of intracardiac thrombus, pacer pads were placed and secured on patients chest and back. Synchronized cardioversion was perfromed using [150] J. [1] attempt. Sinus rhythm was confirmed with a 12 lead EKG. Patient tolerated the procedure well. Patient was transferred to the post procedure area in stable and satisfactory condition. Complications: none Blood loss: none FINDINGS Left Atrium: Severe LA dilatation no evidence of mass or thrombus seen Left Atrial Appendage: Dilated left atrial appendage, slow flow on Doppler and left atrial appendage, no evidence of thrombus. Spontaneous echogenic contrast noticed Inter atrial septum: Intact inter-atrial septum. No evidence of atrial septal defect or patent foramen ovale on color doppler. Left Ventricle: Normal global LV size and systolic function Right Atrium: Normal overall RA size Right Ventricle: Normal global RV size and systolic function Aortic Valve: Structurally normal Trileaflet, mild to moderate calcification. No significant stenosis or regurgitation on color doppler assessment. Mitral Valve: Struturally normal. Mild functional MR Pulmonic Valve: No significant stenosis or regurgitation Tricuspid Valve: Structurally normal. Ascending aorta, Aortic root and Aortic arch: Mild intimal thickening. No evidence of large atheroma or bulky calcification Descending aorta: Mild intimal thickening, mild calcific plaque noticed CONCLUSION: No evidence of thrombus in SHERRY or left atrial appendage Slow flow noticed in left atrial appendage suggestive of chronic nature of atrial fibrillation Severe left atrial dilatation Mild functional mitral regurgitation Aortic sclerosis Successful cardioversion 1 attempt 150 J. Ryan Dolan MD, RPVI, FACC Thank you for allowing [facility] to participate in this patient's care. Feel free to reach out in case of any followup questions.
== END 2023-07-26 09:25 | disposition home or self-care (01) ==
LOC: OR 06:12
PROVIDERS: ATTEND Student in an Organized Health Care Education/Training Program
DX: I48.19 Other persistent atrial fibrillation (principal); I34.0 Nonrheumatic mitral (valve) insufficiency; I70.0 Atherosclerosis of aorta; F32.A Depression, unspecified; K21.9 Gastro-esophageal reflux disease without esophagitis; F17.210 Nicotine dependence, cigarettes, uncomplicated; Z79.01 Long term (current) use of anticoagulants; Z98.890 Other specified postprocedural states; Z79.899 Other long term (current) drug therapy; Z88.5 Allergy status to narcotic agent
CPT/HCPCS: 93312; 93320; 93325; 92960; J2001; J2704

== ENCOUNTER → 2023-08-10 | Outpatient (CLI) | payer MEDICARE ==
[2023-08-10 15:17] LABS: HCT 33.7 % (37.2-46.3); HGB 10.7 g/dL (12.0-15.0); MCH 29.8 pg (27.0-32.0); MCHC 31.8 g/dL (32.0-37.0); MCV 93.9 FL (80.0-97.0); NRBC Per 100 WBC 0 X 10*3/uL (0.00-0.01); Platelet Count 254 X 10*3/uL (140-440); RBC 3.59 X 10*6/uL (4.10-5.20); RDW 17.7 % (11.5-14.5); WBC 7.28 X 10*3/uL (4.50-10.00)
[2023-08-10 15:32] LABS: NT-Pro-B-Type Natriuretic Pept 1858 pg/mL (0-125)
[2023-08-10 15:48] LABS: % Iron Saturation 12.72 (12.00-45.00); ALT 61 U/L (8-44); AST 39 U/L (13-35); Albumin 4.2 g/dL (3.8-4.9); Albumin/Globulin Ratio 1.75 Ratio (1.60-3.17); Alkaline Phosphatase 73 U/L (41-126); BUN/Creat Ratio 19.29 Ratio (12.00-20.00); Calcium 9.7 mg/dL (8.7-10.3); Carbon Dioxide 24.9 mmol/L (21.6-31.8); Chloride 104 mmol/L (96-109); Globulin 2.4 g/dL (1.6-3.3); Glucose 91 mg/dL (70-110); Iron 58 UG/DL (50-170); Potassium 5.2 mmol/L (3.5-5.5); Sodium 140 mmol/L (135-145); Total Bilirubin 0.9 mg/dL (0.3-1.2); Total Iron Binding Capacity 456 UG/DL (228-460); Total Protein 6.6 g/dL (6.2-8.2)
== END | disposition home or self-care (01) ==
LOC: LABWHC1 11:53
PROVIDERS: ATTEND Student in an Organized Health Care Education/Training Program
DX: I48.91 Unspecified atrial fibrillation (principal); I50.9 Heart failure, unspecified; N18.9 Chronic kidney disease, unspecified; D63.1 Anemia in chronic kidney disease
CPT/HCPCS: 36415; 80053; 82728; 83540; 83550; 83880; 84443; 85027

== ENCOUNTER → 2024-05-10 | Outpatient (CLI) | payer MEDICARE ==
[2024-05-10 15:54] LABS: HCT 36.7 % (37.2-46.3); HGB 11.5 g/dL (12.0-15.0); MCH 28.6 pg (27.0-32.0); MCHC 31.3 g/dL (32.0-37.0); MCV 91.3 FL (80.0-97.0); Mean Platelet Volume 9.6 FL (9.5-12.2); NRBC Per 100 WBC 0 X 10*3/uL (0.00-0.01); Platelet Count 305 X 10*3/uL (140-440); RBC 4.02 X 10*6/uL (4.10-5.20); RDW 16.9 % (11.5-14.5); WBC 6.32 X 10*3/uL (4.50-10.00)
[2024-05-10 18:12] LABS: NT-Pro-B-Type Natriuretic Pept 454 pg/mL (0-450)
[2024-05-10 18:19] LABS: ALT 16 U/L (8-44); AST 21 U/L (13-35); Albumin 4.3 g/dL (3.8-4.9); Albumin/Globulin Ratio 1.65 Ratio (1.60-3.17); Alkaline Phosphatase 61 U/L (41-126); Blood Urea Nitrogen 39.9 mg/dL (9.0-27.0); Calcium 9.6 mg/dL (8.7-10.3); Carbon Dioxide 23.5 mmol/L (21.6-31.8); Chloride 107 mmol/L (96-109); Chol/HDL Ratio 1.88 Ratio; Globulin 2.6 g/dL (1.6-3.3); Glucose 97 mg/dL (70-110); LDL Cholesterol,Calculated 59.5 mg/dL (0.0-131.0); Potassium 4.9 mmol/L (3.5-5.5); Sodium 142 mmol/L (135-145); Total Bilirubin 0.6 mg/dL (0.3-1.2); Total Protein 6.9 g/dL (6.2-8.2); VLDL Calculation 7.04 mg/dL (5.00-40.00)
== END | disposition home or self-care (01) ==
LOC: LABWHC1 12:22
PROVIDERS: ATTEND Student in an Organized Health Care Education/Training Program
DX: I50.9 Heart failure, unspecified (principal); E11.9 Type 2 diabetes mellitus without complications; E78.5 Hyperlipidemia, unspecified; D72.9 Disorder of white blood cells, unspecified; R79.89 Other specified abnormal findings of blood chemistry
CPT/HCPCS: 36415; 80053; 80061; 83036; 83880; 85027

== ENCOUNTER → 2024-05-30 | Outpatient (CLI) | payer MEDICARE ==
[2024-05-30 18:06] LABS: HCT 36.8 % (37.2-46.3); HGB 11.8 g/dL (12.0-15.0); MCH 29.4 pg (27.0-32.0); MCHC 32.1 g/dL (32.0-37.0); MCV 91.8 FL (80.0-97.0); Mean Platelet Volume 10.3 FL (9.5-12.2); NRBC Per 100 WBC 0 X 10*3/uL (0.00-0.01); Platelet Count 269 X 10*3/uL (140-440); RBC 4.01 X 10*6/uL (4.10-5.20); RDW 17.6 % (11.5-14.5); WBC 7.22 X 10*3/uL (4.50-10.00)
[2024-05-30 18:11] LABS: ALT 14 U/L (8-44); AST 21 U/L (13-35); Albumin 4.4 g/dL (3.8-4.9); Albumin/Globulin Ratio 1.76 Ratio (1.60-3.17); Alkaline Phosphatase 62 U/L (41-126); BUN/Creat Ratio 15.06 Ratio (12.00-20.00); Blood Urea Nitrogen 25.6 mg/dL (9.0-27.0); Calcium 9.6 mg/dL (8.7-10.3); Carbon Dioxide 23.1 mmol/L (21.6-31.8); Chloride 103 mmol/L (96-109); Globulin 2.5 g/dL (1.6-3.3); Glucose 96 mg/dL (70-110); Potassium 4.6 mmol/L (3.5-5.5); Sodium 139 mmol/L (135-145); Total Bilirubin 0.9 mg/dL (0.3-1.2); Total Protein 6.9 g/dL (6.2-8.2)
[2024-05-30 19:12] LABS: NT-Pro-B-Type Natriuretic Pept 191 pg/mL (0-450)
== END | disposition home or self-care (01) ==
LOC: LABWHC1 11:38
PROVIDERS: ATTEND Student in an Organized Health Care Education/Training Program
DX: I50.9 Heart failure, unspecified (principal); E11.9 Type 2 diabetes mellitus without complications; E03.9 Hypothyroidism, unspecified; D72.9 Disorder of white blood cells, unspecified; R79.89 Other specified abnormal findings of blood chemistry
CPT/HCPCS: 36415; 80053; 83036; 83880; 84443; 85027

== ENCOUNTER → 2024-07-05 | Outpatient (CLI) | payer MEDICARE ==
--- NOTE | 2024-07-06 08:21 | US ---
EXAMINATION TYPE: US kidneys/renal and bladder DATE OF EXAM: 07/05/2024 COMPARISON: NONE CLINICAL INDICATION: Female, 73 years old with history of N18.32 CHRONIC KIDNEY DISEASE, STAGE 3B; TECHNIQUE: Grayscale imaging of the bilateral kidneys and urinary bladder: FINDINGS: EXAM MEASUREMENTS: Right Kidney: 10.5 x 3.3 x 4.4 cm Left Kidney: 9.8 x 4.2 x 4.4 cm Right Kidney: No hydronephrosis or masses seen. On sagittal images of the right kidney, there is a ro unded hypoechoic structure along the right side of the image. The farm equipment technician indicates that this is partial imaging of the adjacent right liver lobe due to probe angle or the probe being flipped. Left Kidney: No hydronephrosis or masses seen Bladder: anechoic, no specific abnormality seen. Bilateral Jets seen: no IMPRESSION: No hydronephrosis. [facility], Workstation: [facility], 07/06/2024 8:18 AM
== END | disposition home or self-care (01) ==
LOC: RADUSWWP 14:01
PROVIDERS: ATTEND Internal Medicine
DX: N18.32 Chronic kidney disease, stage 3b (principal)
CPT/HCPCS: 76770

== ENCOUNTER → 2024-07-13 | Outpatient (CLI) | payer MEDICARE ==
[2024-07-13 18:45] LABS: HGB 10.4 g/dL (12.0-15.0); MCHC 31.5 g/dL (32.0-37.0); MCV 95.1 FL (80.0-97.0); Mean Platelet Volume 10.4 FL (9.5-12.2); NRBC Per 100 WBC 0 X 10*3/uL (0.00-0.01); Platelet Count 244 X 10*3/uL (140-440); RBC 3.47 X 10*6/uL (4.10-5.20); RDW 18.2 % (11.5-14.5); WBC 5.82 X 10*3/uL (4.50-10.00)
[2024-07-13 19:13] LABS: NT-Pro-B-Type Natriuretic Pept 288 pg/mL (0-450)
[2024-07-13 19:21] LABS: ALT 19 U/L (8-44); AST 22 U/L (13-35); Albumin 4.1 g/dL (3.8-4.9); Albumin/Globulin Ratio 1.52 Ratio (1.60-3.17); Alkaline Phosphatase 61 U/L (41-126); BUN/Creat Ratio 22.73 Ratio (12.00-20.00); Blood Urea Nitrogen 34.1 mg/dL (9.0-27.0); C Reactive Protein, High Sens 0.995 mg/L (0.000-3.000); Calcium 9.7 mg/dL (8.7-10.3); Carbon Dioxide 23.3 mmol/L (21.6-31.8); Chloride 104 mmol/L (96-109); Chol/HDL Ratio 1.86 Ratio; Globulin 2.7 g/dL (1.6-3.3); Glucose 92 mg/dL (70-110); LDL Cholesterol,Calculated 48.3 mg/dL (0.0-131.0); Potassium 4.9 mmol/L (3.5-5.5); Sodium 140 mmol/L (135-145); Total Bilirubin 0.6 mg/dL (0.3-1.2); Total Protein 6.8 g/dL (6.2-8.2)
== END | disposition home or self-care (01) ==
LOC: LABWHC1 12:20
PROVIDERS: ATTEND Student in an Organized Health Care Education/Training Program
DX: I50.9 Heart failure, unspecified (principal); E11.9 Type 2 diabetes mellitus without complications; E03.9 Hypothyroidism, unspecified; E78.5 Hyperlipidemia, unspecified; D72.9 Disorder of white blood cells, unspecified; R79.89 Other specified abnormal findings of blood chemistry
CPT/HCPCS: 36415; 80053; 80061; 83036; 83880; 84443; 85027; 86141